=== PATIENT | male | born 1955 | race Caucasian/White ===

== ENCOUNTER 2023-11-08 14:25 | Inpatient (IN) | payer MEDICARE ==
--- NOTE | 2023-11-08 15:08 | ED ---
GI Bleed HPI - General Chief complaint: GI Bleed Stated complaint: abnormal labs Source: patient, RN notes reviewed, old records reviewed Mode of arrival: wheelchair Limitations: no limitations - History of Present Illness Initial comments: This is a 68-year-old male to the ER for evaluation today. Patient presents today for evaluation and regards to GI bleed sent in by primary care for evaluation of GI bleed underlying history of pancreatic cancer complaining of abdominal pain MD complaint: blood streaked emesis -: days(s) Radiation: none Severity scale (1-10): 3 Quality: painless Improves with: none Worsens with: none Context: history of GI bleed Associated Symptoms: weakness Treatments Prior to Arrival: none - Related Data Home Medications Medication Instructions Recorded Confirmed ALPRAZolam [Xanax] 0.5 mg PO TID PRN 11/08/23 11/08/23 Diphenox-Atrop 2.5-0.025 mg 1 - 2 tab PO Q6HR PRN 11/08/23 11/08/23 [Lomotil] Ondansetron Odt [Zofran ODT] 8 mg PO Q8H PRN 11/08/23 11/08/23 Tamsulosin [Flomax] 0.4 mg PO PC-SUPPER 11/08/23 11/08/23 Previous Rx's Medication Instructions Recorded HYDROcodone/APAP 5-325MG [[place] 1 each PO Q6HR PRN tab 11/11/23 5-325] Nicotine 14Mg/24Hr Patch [Habitrol] 1 patch TRANSDERM DAILY #0 patch 11/11/23 Pantoprazole [Protonix] 40 mg PO BID #60 tab 11/11/23 carvediloL [Coreg] 3.125 mg PO AC-BID #60 tablet 11/11/23 Allergies Allergy/AdvReac Type Severity Reaction Status Date / Time Latex, Natural Rubber Allergy Unknown Verified 11/08/23 14:52 Review of Systems ROS Statement: Those systems with pertinent positive or pertinent negative responses have been documented in the HPI. ROS Other: All systems not noted in ROS Statement are negative. 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 Absent: scleral icterus, conjunctival injection, periorbital swelling ENT exam: Present: normal exam, mucous membranes moist Neck exam: Present: normal inspection. Absent: tenderness, meningismus, lymphadenopathy Respiratory exam: Present: normal lung sounds bilaterally. Absent: respiratory distress, wheezes, rales, rhonchi, stridor Cardiovascular Exam: Present: regular rate, normal rhythm, normal heart sounds. Absent: systolic murmur, diastolic murmur, rubs, gallop, clicks GI/Abdominal exam: Present: soft, normal bowel sounds. Absent: distended, tenderness, guarding, rebound, rigid Extremities exam: Present: normal inspection, full ROM, normal capillary refill. Absent: tenderness, pedal edema, joint swelling, calf tenderness Back exam: Present: normal inspection Neurological exam: Present: alert, oriented X3, CN II-XII intact Psychiatric exam: Present: normal affect, normal mood Skin exam: Present: warm, dry, intact, normal color. Absent: rash Course Vital Signs 11/08/23 11/08/23 11/08/23 14:50 18:39 19:33 Temperature 98.1 F 98.1 F Pulse Rate 86 89 92 Respiratory 16 18 18 Rate Blood Pressure 95/66 97/61 92/54 O2 Sat by Pulse 98 98 95 Oximetry 11/08/23 20:20 Temperature 98.3 F Pulse Rate 84 Respiratory 14 Rate Blood Pressure 92/64 O2 Sat by Pulse 97 Oximetry - Reevaluation(s) Reevaluation #1: 11/08/23 15:36 Medical records reviewed Reevaluation #2: 11/08/23 16:06 Patient has no significant amount of GI bleed here in the ER Reevaluation #3: Patient informed of results and questions answered Reevaluation #4: Was pt. sent in by a medical professional or institution (, PA, OIL CHANGER, urgent care, hospital, or fci...) When possible be specific @ -no Did you speak to anyone other than the patient for history (EMS, parent, family, police, friend...)? What history was obtained from this source @ -no Did you review nursing and triage notes (agree or disagree)? Why? @ -agree Are old charts reviewed (outside hosp., previous admission, EMS record, old EKG, old radiological studies, urgent care reports/EKG's, fci records)? R eport findings @ -yes Differential Diagnosis (chest pain, altered mental status, abdominal pain women, abdominal pain men, vaginal bleeding, weakness, fever, dyspnea, syncope, headache, dizziness, GI bleed, back pain, seizure, CVA, palpatations, mental health, musculoskeletal)? @ -prior EKG interpreted by me (3pts min.). @ -yes X-rays interpreted by me (1pt min.). @ -no CT interpreted by me (1pt min.). @ -no U/S interpreted by me (1pt. min.). @ -no What testing was considered but not performed or refused? (CT, X-rays, U/S, labs)? Why? @ -none What meds were considered but not given or refused? Why? @ -none Did you discuss the management of the patient with other professionals (prof essionals i.e. , PA, OIL CHANGER, lab, RT, psych nurse, social welfare research worker, crate tier, teacher, freedom of information officer, rn case manager hospice)? Give summary @ -no Was smoking cessation discussed for >3mins.? @ -no Was critical care preformed (if so, how long)? @ -no Were there social determinants of health that impacted care today? How? (Homelessness, low income, unemployed, alcoholism, drug addiction, transportation, low edu. Level, literacy, decrease access to med. care, shelter, rehab)? @ -none Was there de-escalation of care discussed even if they declined (Discuss DNR or withdrawal of care, Hospice)? DNR status @ -no What co-morbidities impacted this encounter? (DM, HTN, Smoking, COPD, CAD, Cancer, CVA, ARF, Chemo, Hep., AIDS, mental health diagnosis, sleep apnea, morbid obesity)? @ -none Was patient admitted / discharged? Hospital course, mention meds given and route, prescriptions, significant lab abnormalities, going to OR and other pertinent info. @ - 68 Female to ER for evaluation sent by primary care for GI bleed underlying pancreatic cancer history, need for GI evaluation Admitted GI bleed Undiagnosed new problem with uncertain prognosis? @ -no Drug Therapy requiring intensive monitoring for toxicity (Heparin, Nitro, Insulin, Cardizem)? @ -no Were any procedures done? @ -no Diagnosis/symptom? @ - Acute, or Chronic, or Acute on Chronic? @ -Acute Uncomplicated (without systemic symptoms) or Complicated (systemic symptoms)? @ -Complicated Side effects of treatment? @ -no Exacerbation, Progression, or Severe Exacerbation? @ -exacerbation Poses a threat to life or bodily function? How? (Chest pain, USA, SC, pneumonia, PE, COPD, DKA, ARF, appy, cholecystitis, CVA, Diverticulitis, Homicidal, Suicidal, threat to staff... and all critical care pts) @ -yes with admitted Reevaluation #5: Differential GI Bleed: Esophageal varices, aortoenteric fistula, Kath-Shields, gastritis, peptic ulcer disease, diverticulosis, inflammatory bowel disease, hemorrhoids, fissure, colitis, malignancy, Meckels diverticulum, this is not meant to be an all- inclusive list. - Consultations Consultation #1: spoke w Dr. Deras regarding this patient prehospital as well as regarding admission he agrees Medical Decision Making - Medical Decision Making 68 Female to ER for evaluation sent by primary care for GI bleed underlying pancreatic cancer history, need for GI evaluation - Lab Data Result diagrams: 11/11/23 06:24 11/11/23 06:24 Lab Results 11/08/23 11/08/23 11/08/23 Range/Units 15:55 16:00 16:18 WBC 9.0 (3.8-10.6) k/uL RBC 2.55 L (4.30-5.90) m/uL Hgb 8.1 L (13.0-17.5) gm/dL Hct 24.6 L (39.0-53.0) % MCV 96.5 (80.0-100.0) fL MCH 31.7 (25.0-35.0) pg MCHC 32.8 (31.0-37.0) g/dL RDW 14.8 (11.5-15.5) % Plt Count 139 L (150-450) k/uL MPV 9.0 Neutrophils % 85 % Lymphocytes % 7 % Monocytes % 6 % Eosinophils % 0 % Basophils % 0 % Neutrophils # 7.7 (1.3-7.7) k/uL Lymphocytes # 0.7 L (1.0-4.8) k/uL Monocytes # 0.5 (0-1.0) k/uL Eosinophils # 0.0 (0-0.7) k/uL Basophils # 0.0 (0-0.2) k/uL Manual Slide Review Macrocytosis PT (10.0-12.5) sec INR (<1.2) APTT (22.0-30.0) sec Sodium (137-145) mmol/L Potassium (3.5-5.1) mmol/L Chloride (98-107) mmol/L Carbon Dioxide (22-30) mmol/L Anion Gap mmol/L BUN (9-20) mg/dL Creatinine (0.66-1.25) mg/dL Est GFR (CKD-EPI)AfAm (>60 ml/min/1.73 sqM) Est GFR (CKD-EPI)NonAf (>60 ml/min/1.73 sqM) Glucose (74-99) mg/dL Plasma Lactic Acid Walt (0.7-2.0) mmol/L Calcium (8.4-10.2) mg/dL Phosphorus (2.5-4.5) mg/dL Magnesium (1.6-2.3) mg/dL Iron (65-175) UG/DL TIBC (228-460) UG/DL % Saturation (15.00-50.00) Transferrin (204.0-354.0) mg/dL Ferritin (22.0-322.0) ng/mL Total Bilirubin (0.2-1.3) mg/dL AST (17-59) U/L ALT (4-49) U/L Alkaline Phosphatase (38-126) U/L Ammonia (<30) umol/L Troponin I (0.000-0.034) ng/mL Total Protein (6.3-8.2) g/dL Albumin (3.5-5.0) g/dL Lipase (23-300) U/L Vitamin B12 (200.0-944.0) pg/mL Folate (4.40-31.00) ng/mL TSH (0.465-4.680) mIU/L Blood Type A Positive Blood Type Confirm A Positive Blood Type Recheck No Previous Record Bld Type Recheck Status CABO Indicated Antibody Screen NEGATIVE Crossmatch See Detail Spec Expiration Date 11/11/2023 - 229911/08/23 11/08/23 11/08/23 Range/Units 16:18 16:18 16:18 WBC (3.8-10.6) k/uL RBC (4.30-5.90) m/uL Hgb (13.0-17.5) gm/dL Hct (39.0-53.0) % MCV (80.0-100.0) fL MCH (25.0-35.0) pg MCHC (31.0-37.0) g/dL RDW (11.5-15.5) % Plt Count (150-450) k/uL MPV Neutrophils % % Lymphocytes % % Monocytes % % Eosinophils % % Basophils % % Neutrophils # (1.3-7.7) k/uL Lymphocytes # (1.0-4.8) k/uL Monocytes # (0-1.0) k/uL Eosinophils # (0-0.7) k/uL Basophils # (0-0.2) k/uL Manual Slide Review Macrocytosis PT 11.1 (10.0-12.5) sec INR 1.0 (<1.2) APTT 31.7 H (22.0-30.0) sec Sodium 136 L (137-145) mmol/L Potassium 4.1 (3.5-5.1) mmol/L Chloride 102 (98-107) mmol/L Carbon Dioxide 29 (22-30) mmol/L Anion Gap 5 mmol/L BUN 26 H (9-20) mg/dL Creatinine 0.41 L (0.66-1.25) mg/dL Est GFR (CKD-EPI)AfAm >90 (>60 ml/min/1.73 sqM) Est GFR (CKD-EPI)NonAf >90 (>60 ml/min/1.73 sqM) Glucose 96 (74-99) mg/dL Plasma Lactic Acid Walt 1.2 (0.7-2.0) mmol/L Calcium 8.6 (8.4-10.2) mg/dL Phosphorus (2.5-4.5) mg/dL Magnesium 1.8 (1.6-2.3) mg/dL Iron (65-175) UG/DL TIBC (228-460) UG/DL % Saturation (15.00-50.00) Transferrin (204.0-354.0) mg/dL Ferritin (22.0-322.0) ng/mL Total Bilirubin 0.7 (0.2-1.3) mg/dL AST 28 (17-59) U/L ALT 23 (4-49) U/L Alkaline Phosphatase 155 H (38-126) U/L Ammonia <9 (<30) umol/L Troponin I (0.000-0.034) ng/mL Total Protein 5.6 L (6.3-8.2) g/dL Albumin 3.2 L (3.5-5.0) g/dL Lipase 26 (23-300) U/L Vitamin B12 (200.0-944.0) pg/mL Folate (4.40-31.00) ng/mL TSH (0.465-4.680) mIU/L Blood Type Blood Type Confirm Blood Type Recheck Bld Type Recheck Status Antibody Screen Crossmatch Spec Expiration Date 11/08/23 11/08/23 11/08/23 Range/Units 16:18 16:18 21:41 WBC 5.8 (3.8-10.6) k/uL RBC 2.28 L (4.30-5.90) m/uL Hgb 7.0 L (13.0-17.5) gm/dL Hct 22.5 L (39.0-53.0) % MCV 99.0 (80.0-100.0) fL MCH 30.8 (25.0-35.0) pg MCHC 31.1 (31.0-37.0) g/dL RDW 14.8 (11.5-15.5) % Plt Count 95 L (150-450) k/uL MPV 9.2 Neutrophils % 79 % Lymphocytes % 12 % Monocytes % 6 % Eosinophils % 1 % Basophils % 1 % Neutrophils # 4.6 (1.3-7.7) k/uL Lymphocytes # 0.7 L (1.0-4.8) k/uL Monocytes # 0.4 (0-1.0) k/uL Eosinophils # 0.0 (0-0.7) k/uL Basophils # 0.0 (0-0.2) k/uL Manual Slide Review Performed Macrocytosis Slight PT (10.0-12.5) sec INR (<1.2) APTT (22.0-30.0) sec Sodium (137-145) mmol/L Potassium (3.5-5.1) mmol/L Chloride (98-107) mmol/L Carbon Dioxide (22-30) mmol/L Anion Gap mmol/L BUN (9-20) mg/dL Creatinine (0.66-1.25) mg/dL Est GFR (CKD-EPI)AfAm (>60 ml/min/1.73 sqM) Est GFR (CKD-EPI)NonAf (>60 ml/min/1.73 sqM) Glucose (74-99) mg/dL Plasma Lactic Acid Walt (0.7-2.0) mmol/L Calcium (8.4-10.2) mg/dL Phosphorus (2.5-4.5) mg/dL Magnesium (1.6-2.3) mg/dL Iron (65-175) UG/DL TIBC (228-460) UG/DL % Saturation (15.00-50.00) Transferrin (204.0-354.0) mg/dL Ferritin (22.0-322.0) ng/mL Total Bilirubin (0.2-1.3) mg/dL AST (17-59) U/L ALT (4-49) U/L Alkaline Phosphatase (38-126) U/L Ammonia (<30) umol/L Troponin I <0.012 (0.000-0.034) ng/mL Total Protein (6.3-8.2) g/dL Albumin (3.5-5.0) g/dL Lipase (23-300) U/L Vitamin B12 (200.0-944.0) pg/mL Folate (4.40-31.00) ng/mL TSH 1.600 (0.465-4.680) mIU/L Blood Type Blood Type Confirm Blood Type Recheck Bld Type Recheck Status Antibody Screen Crossmatch Spec Expiration Date 11/09/23 11/09/23 11/09/23 Range/Units 10:16 10:16 10:16 WBC 4.7 (3.8-10.6) k/uL RBC 2.21 L (4.30-5.90) m/uL Hgb 6.8 L* (13.0-17.5) gm/dL Hct 21.5 L (39.0-53.0) % MCV 97.6 (80.0-100.0) fL MCH 31.0 (25.0-35.0) pg MCHC 31.7 (31.0-37.0) g/dL RDW 15.0 (11.5-15.5) % Plt Count 96 L (150-450) k/uL MPV 9.2 Neutrophils % 82 % Lymphocytes % 9 % Monocytes % 6 % Eosinophils % 2 % Basophils % 0 % Neutrophils # 3.8 (1.3-7.7) k/uL Lymphocytes # 0.4 L (1.0-4.8) k/uL Monocytes # 0.3 (0-1.0) k/uL Eosinophils # 0.1 (0-0.7) k/uL Basophils # 0.0 (0-0.2) k/uL Manual Slide Review Macrocytosis PT (10.0-12.5) sec INR (<1.2) APTT (22.0-30.0) sec Sodium 136 L (137-145) mmol/L Potassium 3.7 (3.5-5.1) mmol/L Chloride 108 H (98-107) mmol/L Carbon Dioxide 27 (22-30) mmol/L Anion Gap 1 mmol/L BUN 18 (9-20) mg/dL Creatinine 0.38 L (0.66-1.25) mg/dL Est GFR (CKD-EPI)AfAm >90 (>60 ml/min/1.73 sqM) Est GFR (CKD-EPI)NonAf >90 (>60 ml/min/1.73 sqM) Glucose 77 (74-99) mg/dL Plasma Lactic Acid Walt (0.7-2.0) mmol/L Calcium 8.0 L (8.4-10.2) mg/dL Phosphorus 3.4 (2.5-4.5) mg/dL Magnesium 1.8 (1.6-2.3) mg/dL Iron 39 L (65-175) UG/DL TIBC 235 (228-460) UG/DL % Saturation 16.60 (15.00-50.00) Transferrin 168.0 L (204.0-354.0) mg/dL Ferritin 168.0 (22.0-322.0) ng/mL Total Bilirubin 0.6 (0.2-1.3) mg/dL AST 24 (17-59) U/L ALT 19 (4-49) U/L Alkaline Phosphatase 136 H (38-126) U/L Ammonia (<30) umol/L Troponin I (0.000-0.034) ng/mL Total Protein 4.9 L (6.3-8.2) g/dL Albumin 2.6 L (3.5-5.0) g/dL Lipase (23-300) U/L Vitamin B12 359.0 (200.0-944.0) pg/mL Folate 11.80 (4.40-31.00) ng/mL TSH (0.465-4.680) mIU/L Blood Type Blood Type Confirm Blood Type Recheck Bld Type Recheck Status Antibody Screen Crossmatch Spec Expiration Date 11/09/23 11/10/23 11/10/23 Range/Units 20:05 08:46 08:46 WBC 5.5 5.2 (3.8-10.6) k/uL RBC 2.40 L 2.72 L (4.30-5.90) m/uL Hgb 7.6 L 8.5 L (13.0-17.5) gm/dL Hct 23.7 L 26.8 L (39.0-53.0) % MCV 98.9 98.7 (80.0-100.0) fL MCH 31.8 31.4 (25.0-35.0) pg MCHC 32.2 31.8 (31.0-37.0) g/dL RDW 14.6 15.2 (11.5-15.5) % Plt Count 104 L 110 L (150-450) k/uL MPV 8.6 8.9 Neutrophils % % Lymphocytes % % Monocytes % % Eosinophils % % Basophils % % Neutrophils # (1.3-7.7) k/uL Lymphocytes # (1.0-4.8) k/uL Monocytes # (0-1.0) k/uL Eosinophils # (0-0.7) k/uL Basophils # (0-0.2) k/uL Manual Slide Review Macrocytosis Slight Slight PT (10.0-12.5) sec INR (<1.2) APTT (22.0-30.0) sec Sodium 139 (137-145) mmol/L Potassium 3.3 L (3.5-5.1) mmol/L Chloride 111 H (98-107) mmol/L Carbon Dioxide 23 (22-30) mmol/L Anion Gap 5 mmol/L BUN 12 (9-20) mg/dL Creatinine 0.42 L (0.66-1.25) mg/dL Est GFR (CKD-EPI)AfAm >90 (>60 ml/min/1.73 sqM) Est GFR (CKD-EPI)NonAf >90 (>60 ml/min/1.73 sqM) Glucose 89 (74-99) mg/dL Plasma Lactic Acid Walt (0.7-2.0) mmol/L Calcium 8.3 L (8.4-10.2) mg/dL Phosphorus (2.5-4.5) mg/dL Magnesium (1.6-2.3) mg/dL Iron (65-175) UG/DL TIBC (228-460) UG/DL % Saturation (15.00-50.00) Transferrin (204.0-354.0) mg/dL Ferritin (22.0-322.0) ng/mL Total Bilirubin 0.8 (0.2-1.3) mg/dL AST 27 (17-59) U/L ALT 20 (4-49) U/L Alkaline Phosphatase 164 H (38-126) U/L Ammonia (<30) umol/L Troponin I (0.000-0.034) ng/mL Total Protein 5.2 L (6.3-8.2) g/dL Albumin 2.9 L (3.5-5.0) g/dL Lipase (23-300) U/L Vitamin B12 (200.0-944.0) pg/mL Folate (4.40-31.00) ng/mL TSH (0.465-4.680) mIU/L Blood Type Blood Type Confirm Blood Type Recheck Bld Type Recheck Status Antibody Screen Crossmatch Spec Expiration Date Disposition Clinical Impression: Lower gastrointestinal hemorrhage Disposition: ADMITTED IP TO THIS HOSP Condition: Serious Is patient prescribed a controlled substance at d/c from ED?: No Time of Disposition: 16:00
[2023-11-08] MEDS ORDERED: HYDROmorphone 1 MG/ML 1 ML SYRINGE IVP PRN (16:00)
[2023-11-08] MEDS ORDERED: NALOXONE 0.4 MG/ML 1 ML VIAL IV PRN (16:00)
[2023-11-08] MEDS: HYDROmorphone 1 MG/ML 1 ML SYRINGE IVP STA (16:33)
[2023-11-08] MEDS: ONDANSETRON 4 MG/2 ML VIAL IVP STA (16:37)
[2023-11-08] MEDS: PANTOPRAZOLE 40 MG/10 ML VIAL IVP STA (16:37)
[2023-11-08] MEDS: NICOTINE 21MG/24HR PATCH TRANSDERM STA (16:43)
[2023-11-08] MEDS: SODIUM CHLORIDE 0.9% 1,000 ML IV STA ×2 (16:44→18:19)
[2023-11-08 16:47] LABS: Partial Thromboplastin Time 31.7 sec (22.0-30.0); Prothrombin Time 11.1 sec (10.0-12.5)
[2023-11-08 16:55] LABS: Basophils % (A) 0 %; Eosinophils % (A) 0 %; HCT 24.6 % (39.0-53.0); HGB 8.1 gm/dL (13.0-17.5); Lymphocytes # (A) 0.7 k/uL (1.0-4.8); Lymphocytes % (A) 7 %; MCH 31.7 pg (25.0-35.0); MCHC 32.8 g/dL (31.0-37.0); MCV 96.5 fL (80.0-100.0); Monocytes # (A) 0.5 k/uL (0-1.0); Monocytes % (A) 6 %; Neutrophils # (A) 7.7 k/uL (1.3-7.7); Neutrophils % (A) 85 %; Platelet Count 139 k/uL (150-450); RBC 2.55 m/uL (4.30-5.90); RDW 14.8 % (11.5-15.5)
[2023-11-08 17:00] LABS: ALT 23 U/L (4-49); AST 28 U/L (17-59); African American GFR (CKD) >90 (>60 ml/min/1.73 sqM); Albumin 3.2 g/dL (3.5-5.0); Alkaline Phosphatase 155 U/L (38-126); Anion Gap 5 mmol/L; Blood Urea Nitrogen 26 mg/dL (9-20); Calcium 8.6 mg/dL (8.4-10.2); Carbon Dioxide 29 mmol/L (22-30); Chloride 102 mmol/L (98-107); Glucose 96 mg/dL (74-99); Lipase 26 U/L (23-300); Magnesium 1.8 mg/dL (1.6-2.3); Non-African American GFR(CKD) >90 (>60 ml/min/1.73 sqM); Potassium 4.1 mmol/L (3.5-5.1); Sodium 136 mmol/L (137-145); Total Bilirubin 0.7 mg/dL (0.2-1.3); Total Protein 5.6 g/dL (6.3-8.2)
[2023-11-08 17:01] LABS: Lactic Acid, Venous 1.2 mmol/L (0.7-2.0)
[2023-11-08] MEDS: TAMSULOSIN 0.4 MG CAP.ER.24H PO SCH (19:01)
[2023-11-08] MEDS: PANTOPRAZOLE 40 MG/10 ML VIAL IV SCH (21:37)
[2023-11-08] MEDS: ALPRAZolam 0.5 MG TAB PO PRN (21:37)
[2023-11-08 21:59] LABS: Basophils % (A) 1 %; Eosinophils % (A) 1 %; HCT 22.5 % (39.0-53.0); Lymphocytes # (A) 0.7 k/uL (1.0-4.8); Lymphocytes % (A) 12 %; MCH 30.8 pg (25.0-35.0); MCHC 31.1 g/dL (31.0-37.0); Macrocytosis Slight; Mean Platelet Volume 9.2; Monocytes # (A) 0.4 k/uL (0-1.0); Monocytes % (A) 6 %; Neutrophils # (A) 4.6 k/uL (1.3-7.7); Neutrophils % (A) 79 %; RBC 2.28 m/uL (4.30-5.90); RDW 14.8 % (11.5-15.5); WBC 5.8 k/uL (3.8-10.6)
[2023-11-08 22:44] LABS: Platelet Count 95 k/uL (150-450)
--- NOTE | 2023-11-08 23:47 | P.HPIM ---
History of Present Illness H&P Date: 11/08/23 HISTORY OF PRESENT ILLNESS: 68-year-old office patient with active medical history of pancreatic cancer, history of polycythemia vera, kidney stone with mild hydronephrosis, hy pertension, hyperlipidemia, atrial fibrillation not on any anticoagulation who has been treated promptly for pancreatic cancer had radiation and chemotherapy last cycle was few weeks ago he was seen his oncologist at [facility] and seen cryptologic linguist at [facility] as well. He was recently in the office for recurrent abdominal discomfort with mild hematuria and BPH symptoms CAT scan of the abdomen done recently showed kidney stone with mild hydronephrosis and sign of upper urinary infection was started on Cipro and Flomax and has done well. He called the office today with a concern of tarry stool, severe fatigue and tiredness, increased abdominal pain mostly in the epigastric area started Tuesday of this week become slightly bit worse since and has been having tarry black stool since with slightly frequent bowel movement. Was seen and evaluated in the office his hemoglobin from the time before was 12 g stat CBC was done in the office came back at 9.0. Patient was referred to the emergency department for gastrointestinal bleed he ended up with hemoglobin of 8.1 with a short pe riod of time from the timing of the office to coming to the hospital. Patient was admitted for gastrointestinal bleed most likely upper GI his pulse was slightly bit irregular, has A-fib and has been having history of A-fib for a while did not require any anticoagulation was seen cardiology previously with his current history of gastrointestinal cancer and the higher evidence for anemia and complication he is not on any anticoagulation. REVIEW OF SYSTEMS: CONSTITUTIONAL: Well-developed no acute respiratory distress. Quite bit pale. EYES: No icterus sclerae, no conjunctivitis. EARS, NOSE, MOUTH, THROAT, and FACE: No sore throat, lymphadenopathy, carotid bruits or deformity. RESPIRATORY: No SOB cough or wheezes. CARDIOVASCULAR: No CP, positive palpitation and PND, Orthopnea, without angina. GASTROINTESTINAL: Positive abdominal pain with nausea positive diarrhea with black stool and recurrent GI bleed without any bright blood per rectum. History of pancreatic cancer. GENITOURINARY: Negative for Hematuria or UTI, no kidney stones. Mild BPH sympt oms. INTEGUMENT/BREAST: Negative for any muscular injury with mild osteoarthritis.. HEMATOLOGIC/LYMPHATIC: Negative for bleed or purpura. MUSCULOSKELTAL: Negative for Myalgia or arthralgia. NEURLOGICAL: No LOC, Sz or syncope, blurred vision dizziness or abnormality.. BEHAVIORAL/PSYCH: Negative. ENDOCRINE: Negative. PHYSICAL EXAMINATION: General Appearance: Alert, cooperative, no distress, appears stated age. Neck HEENT: Supple, no lymphadenopathy, no thyroid enlargement, no carotid bruits. Lungs: Clear to auscultation without crackles or wheezes no rhonchi, no defor mity. Chest Wall: Chest wall normal expansion with deep inspiration no tenderness and no deformity was found on exam, no costochondral pain or discomfort. Heart: Irregular rate and rhythm, S1, S2 normal, positive systolic murmur at the apex. Back: Symmetric, no curvature, ROM normal, no CVA tenderness. Mild scoliosis and discomfort. Abdomen: Soft, bowel sounds active all four quadrants, slight discomfort in the epigastric area and mid abdominal area without rebound or rigidity. Extremities: Extremities normal, atraumatic, no cyanosis or edema. Old scar tissue on the left calvarium. Pulses: 2+ and symmetric. Skin: Skin color, texture, tugor normal, no rashes or lesions. Neurologic: Alert oriented x3 cranial nerves II through XII intact, no motor deficit, no abnormal balance or gait. ASSESSMENT AND PLAN: _Acute gastrointestinal bleed: Most likely upper in origin most likely gastritis or ulcer with his history of pancreatic cancer with the current treatment very high possibility. Continue pantoprazole IV 40 mg twice a day, consult GI, CBC every 6-8 hours and be prepared for blood transfusion in the next few hours. _Acute blood loss anemia: Most likely from gastrointestinal bleed specially with his tarry stool will be scheduled for EGD in the next 24 hours in the meanwhile continue proton pump inhibitor IV transfusion if hemoglobin drop below 7. _History of pancreatic cancer: Has been treated with chemotherapy currently was the plan to go for intervention with possible [facility] at [facility] procedure currently can delay. _History of polycythemia vera: Has been seen by an oncologist at [facility] on more regular basis was doing hydroxyurea previously. _Recent history of kidney stone with mild hydronephrosis found via CAT scan patient was treated remain on Flomax. _Abdominal aortic aneurysm with size of 3.8 cm small and to be watch not in any active treatment. _Hypertension: Has been on lisinopril hydrochlorothiazide 10/12.5 mg a day hold medication if systolic blood pressure below 110. _Hyperlipidemia: Has been on simvastatin 20 mg a day. _A-fib with well-controlled pulse rate running in the 70s to 90s was on atenolol previously he is not on any anticoagulation. _BPH: Continue Flomax watch for any urinary retention. 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 _GI prophylaxis: Continue pantoprazole IV. _DVT prophylaxis: Continue knee-high ANTHONY hose and early mobilization. CODE STATUS: Full code. Admit patient to the inpatient service for more than 2 night stay. 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 Past Anesthesia/Blood Transfusion Reactions: No Reported Reaction Past Psychological History: No Psychological Hx Reported Smoking Status: Current every day smoker Past Alcohol Use History: Occasional Past Drug Use History: None Reported Medications and Allergies Home Medications Medication Instructions Recorded Confirmed Type ALPRAZolam [Xanax] 0.5 mg PO TID PRN 11/08/23 11/08/23 History Diphenox-Atrop 2.5-0.025 mg 1 - 2 tab PO Q6HR PRN 11/08/23 11/08/23 History [Lomotil] Ondansetron Odt [Zofran Odt] 8 mg PO Q8H PRN 11/08/23 11/08/23 History Tamsulosin [Flomax] 0.4 mg PO PC-SUPPER 11/08/23 11/08/23 History Allergies Allergy/AdvReac Type Severity Reaction Status Date / Time Latex, Natural Rubber Allergy Unknown Verified 11/08/23 14:52 Physical Exam Vitals: Vital Signs Temp Pulse Resp BP Pulse Ox 11/08/23 14:50 98.1 F 86 16 95/66 98 Intake and Output 11/08/23 11/08/23 11/08/23 06:59 14:59 22:59 Other: Weight 60.328 kg Results CBC & Chem 7: 11/08/23 21:41 11/08/23 16:18 Labs: Abnormal Lab Results - Last 24 Hours (Table) 11/08/23 11/08/23 11/08/23 Range/Units 16:18 16:18 16:18 RBC 2.55 L (4.30-5.90) m/uL Hgb 8.1 L (13.0-17.5) gm/dL Hct 24.6 L (39.0-53.0) % Plt Count 139 L (150-450) k/uL Lymphocytes # 0.7 L (1.0-4.8) k/uL APTT 31.7 H (22.0-30.0) sec Sodium 136 L (137-145) mmol/L BUN 26 H (9-20) mg/dL Creatinine 0.41 L (0.66-1.25) mg/dL Alkaline Phosphatase 155 H (38-126) U/L Total Protein 5.6 L (6.3-8.2) g/dL Albumin 3.2 L (3.5-5.0) g/dL
[2023-11-09] MEDS: NICOTINE 14MG/24HR PATCH TRANSDERM SCH (08:12)
[2023-11-09] MEDS: SODIUM CHLORIDE 0.9% 1,000 ML IV SCH (08:13)
[2023-11-09 10:42] LABS: Basophils % (A) 0 %; Eosinophils # (A) 0.1 k/uL (0-0.7); Eosinophils % (A) 2 %; HCT 21.5 % (39.0-53.0); Lymphocytes # (A) 0.4 k/uL (1.0-4.8); Lymphocytes % (A) 9 %; MCHC 31.7 g/dL (31.0-37.0); MCV 97.6 fL (80.0-100.0); Mean Platelet Volume 9.2; Monocytes # (A) 0.3 k/uL (0-1.0); Monocytes % (A) 6 %; Neutrophils # (A) 3.8 k/uL (1.3-7.7); Neutrophils % (A) 82 %; RBC 2.21 m/uL (4.30-5.90); WBC 4.7 k/uL (3.8-10.6)
[2023-11-09 10:56] LABS: ALT 19 U/L (4-49); AST 24 U/L (17-59); African American GFR (CKD) >90 (>60 ml/min/1.73 sqM); Albumin 2.6 g/dL (3.5-5.0); Alkaline Phosphatase 136 U/L (38-126); Anion Gap 1 mmol/L; Blood Urea Nitrogen 18 mg/dL (9-20); Carbon Dioxide 27 mmol/L (22-30); Chloride 108 mmol/L (98-107); Glucose 77 mg/dL (74-99); Magnesium 1.8 mg/dL (1.6-2.3); Non-African American GFR(CKD) >90 (>60 ml/min/1.73 sqM); Phosphorus 3.4 mg/dL (2.5-4.5); Potassium 3.7 mmol/L (3.5-5.1); Sodium 136 mmol/L (137-145); Total Bilirubin 0.6 mg/dL (0.2-1.3); Total Protein 4.9 g/dL (6.3-8.2)
[2023-11-09 11:07] LABS: Platelet Count 96 k/uL (150-450)
[2023-11-09 11:09] LABS: HGB 6.8 gm/dL (13.0-17.5)
--- NOTE | 2023-11-09 11:19 | P.CONS ---
History of Present Illness - Reason for Consult Consult date: 11/09/23 GI bleed Requesting physician: Kenneth Hart - Chief Complaint Black stool, weakness - History of Present Illness This is a pleasant 68-year-old male with a past medical history including polycythemia vera, hyperlipidemia, hypertension, possible atrial fibrillation not on anticoagulation, kidney stone with hydronephrosis and pancreatic cancer with recent chemotherapy and radiation therapy. Last radiation treatment in July this year. Patient states he started noticing black stools Tuesday morning which have been loose he was having multiple prior to coming into the hospital but has only had 1 yesterday morning. States it was still black, no abdominal pain but states that he does have some epigastric discomfort and has been having more recent complaints of heartburn/acid reflux. He denies any difficulty swallowing. He denies any NSAID use states he only uses Tylenol. Denies any previous history of GI bleed. He had a screening colonoscopy in September [address] Chisholm with findings of diverticulosis and multiple polyps status post polypectomy. He states that as part of his workup for his pancreatic cancer which she follows with [facility] in [place] he had a colonoscopy last year which she states was normal. No prior upper endoscopy. No history of peptic ulcer disease. Hemoglobin 7.0 yesterday platelets 95,000 with elevated BUN 26. Review of Systems REVIEW OF SYSTEMS: CARDIOPULMONARY: No chest pain or shortness of breath. Gastrointestinal: No abdominal pain. Acid reflux/GERD. No nausea or vomiting. No hematemesis, coffee-ground emesis. No rectal bleeding, reports black stool since Tuesday. GENITOURINARY: No dysuria or hematuria. MUSCULOSKELETAL: Reports normal range of motion., Joint pain. SKIN: No rashes. No jaundice. ENDOCRINE: No chills, fevers. No excessive weight gain or loss. No polydipsia or polyuria. PSYCHIATRIC: Unremarkable. NEUROLOGY: No change in mental status. Denies dizziness, headache. ENT: Vision unremarkable. CONSTITUTIONAL: No fever, chills, night sweats. Past Medical History Past Medical History: Hyperlipidemia, Hypertension, Osteoarthritis (OA) Additional Past Medical History / Comment(s): Farming accident to left medial calf/erickson History of Any Multi-Drug Resistant Organisms: None Reported Past Surgical History: Orthopedic Surgery Additional Past Surgical History / Comment(s): multiple surgeries to left calf related to farming accident Past Anesthesia/Blood Transfusion Reactions: No Reported Reaction Past Psychological History: No Psychological Hx Reported Smoking Status: Current every day smoker Past Alcohol Use History: Occasional Past Drug Use History: None Reported Medications and Allergies Home Medications Medication Instructions Recorded Confirmed Type ALPRAZolam [Xanax] 0.5 mg PO TID PRN 11/08/23 11/08/23 History Diphenox-Atrop 2.5-0.025 mg 1 - 2 tab PO Q6HR PRN 11/08/23 11/08/23 History [Lomotil] Ondansetron Odt [Zofran Odt] 8 mg PO Q8H PRN 11/08/23 11/08/23 History Tamsulosin [Flomax] 0.4 mg PO PC-SUPPER 11/08/23 11/08/23 History Allergies Allergy/AdvReac Type Severity Reaction Status Date / Time Latex, Natural Rubber Allergy Unknown Verified 11/08/23 14:52 Physical Exam Vitals: Vital Signs Temp Pulse Pulse Resp BP BP Pulse Ox 11/09/23 08:10 97.7 F 80 18 97/65 95 11/09/23 04:00 97.9 F 79 16 96/57 98 11/09/23 00:00 97.9 F 91 16 90/56 95 11/08/23 21:18 98 F 98 18 108/71 100 11/08/23 20:20 98.3 F 84 14 92/64 97 11/08/23 19:33 98.1 F 92 18 92/54 95 11/08/23 18:39 89 18 97/61 98 11/08/23 14:50 98.1 F 86 16 95/66 98 Intake and Output 11/08/23 11/09/23 11/09/23 22:59 06:59 14:59 Intake Total 800 Output Total 250 Balance -250 800 Intake: Intake, IV Titration 800 Amount Sodium Chloride 0.9% 1, 800 000 ml @ 100 mls/hr IV . Q10H STA Rx#:[id number] Output: Urine 250 Other: Voiding Method Toilet Toilet # Voids 1 1 Weight 60.328 kg 61.5 kg General appearance: The patient is alert, oriented, appears in no acute distress. HET: Head is normocephalic and atraumatic. Conjunctiva pink. Sclera anicteric. Neck: Supple without lymphadenopathy. Trachea midline. Heart: Regular. Lungs: Equal expansion, normal respiratory effort. Abdomen: Soft, nontender, nondistended. Skin: No rashes. No jaundice. Extremities: Normal skin color and turgor. No pedal edema. Neurological: No focal deficits. Alert and oriented x3. Results CBC & Chem 7: 11/08/23 21:41 11/09/23 10:16 Labs: Abnormal Lab Results - Last 24 Hours (Table) 11/08/23 11/08/23 11/08/23 Range/Units 16:18 16:18 16:18 RBC 2.55 L (4.30-5.90) m/uL Hgb 8.1 L (13.0-17.5) gm/dL Hct 24.6 L (39.0-53.0) % Plt Count 139 L (150-450) k/uL Lymphocytes # 0.7 L (1.0-4.8) k/uL APTT 31.7 H (22.0-30.0) sec Sodium 136 L (137-145) mmol/L Chloride (98-107) mmol/L BUN 26 H (9-20) mg/dL Creatinine 0.41 L (0.66-1.25) mg/dL Calcium (8.4-10.2) mg/dL Alkaline Phosphatase 155 H (38-126) U/L Total Protein 5.6 L (6.3-8.2) g/dL Albumin 3.2 L (3.5-5.0) g/dL 11/08/23 11/09/23 Range/Units 21:41 10:16 RBC 2.28 L (4.30-5.90) m/uL Hgb 7.0 L (13.0-17.5) gm/dL Hct 22.5 L (39.0-53.0) % Plt Count 95 L (150-450) k/uL Lymphocytes # 0.7 L (1.0-4.8) k/uL APTT (22.0-30.0) sec Sodium 136 L (137-145) mmol/L Chloride 108 H (98-107) mmol/L BUN (9-20) mg/dL Creatinine 0.38 L (0.66-1.25) mg/dL Calcium 8.0 L (8.4-10.2) mg/dL Alkaline Phosphatase 136 H (38-126) U/L Total Protein 4.9 L (6.3-8.2) g/dL Albumin 2.6 L (3.5-5.0) g/dL Assessment and Plan (1) Anemia Narrative/Plan: 68-year-old male presenting with weakness and black stools since Tuesday. No previous history of GI bleed however does have pancreatic cancer his completed chemotherapy and recently completed radiation therapy last treatment and July of this year. Reported history of atrial fibrillation not on any anticoagulation presented with anemia. Unclear etiology patient has been co mplaining of epigastric discomfort and GERD. No NSAID use. Possible etiologies include peptic ulcer disease, AVM, gastritis, esophagitis or other possible etiologies. Recommend proceeding with upper endoscopy as patient has had a drop in hemoglobin to 6.8 today, elevated BUN which can be seen with upper GI bleed. Current Visit: Yes Status: Acute Code(s): D64.9 - ANEMIA, UNSPECIFIED SNOMED Code(s): 353880442 (2) Melena Current Visit: Yes Status: Acute Code(s): K92.1 - MELENA SNOMED Code(s): 7547027 (3) Pancreatic cancer Current Visit: Yes Status: Acute Code(s): C25.9 - MALIGNANT NEOPLASM OF PANCREAS, UNSPECIFIED SNOMED Code(s): 980341511 (4) Polycythemia vera Current Visit: Yes Status: Acute Code(s): D45 - POLYCYTHEMIA VERA SNOMED Code(s): 340923288 (5) Nicotine addiction Current Visit: No Status: Acute Code(s): F17.200 - NICOTINE DEPENDENCE, UNSPECIFIED, UNCOMPLICATED SNOMED Code(s): 31090055 Plan: 1. Continue symptomatic and supportive care 2. Keep n.p.o. 3. Daily CBC, transfuse for hemoglobin less than 7 4. Transfuse 1 unit of blood 5. Avoid NSAIDs 6. Protonix 40 mg twice daily 7. Anemia profile ordered 8. Will plan for upper endoscopy today. Procedure discussed with patient and at the bedside including risks and benefits. Patient agreeable to proceed. Thank you for this consultation, we will continue to follow. Dr. Sarabjit Al I agree with the dictator's note, documented as a scribe by Melina Weathers
--- NOTE | 2023-11-09 12:11 | P.CRDCN ---
History of Present Illness History of present illness: HISTORY OF PRESENT ILLNESS: This is a 68-year-old male with a past medical history significant for pancreatic cancer with chemotherapy and radiation and kidney stones. Patient does not follow with a laser technician. We have been asked to see the patient in consultation for atrial fibrillation. Patient examined at the bedside. Patient spouse is at the bedside. Patient presented to the hospital with a chief complaint of black stools x 3 to 4 days. Patient was found to be anemic. Most recent hemoglobin 6.8. Patient is scheduled to undergo endoscopy this afternoon. Patient was also found to be in atrial fibrillation with controlled ventricular rate. The patient denies any previous history of atrial fibrillation. However this is documented on the history and physical by Dr. Thang manning. However, patient and spouse deny history of atrial fibrillation. There are no previous EKGs available in the EMR for review. The patient was not anticoagulated on an outpatient basis. DIAGNOSTICS: - EKG reveals atrial fibrillation with controlled ventricular rate - Laboratory data: WBC 4.7. Hemoglobin 6.8. Platelet count 96. Sodium 136. Potassium 3.7. BUN 18. Creatinine 0.38. Troponin negative x 1. - Current home cardiac medications include none REVIEW OF SYSTEMS: At the time of my exam: CONSTITUTIONAL: Denies fever or chills. HEENT: Denies blurred vision, vision changes, or eye pain. Denies hemoptysis CARDIOVASCULAR: Denies chest pain. Denies orthopnea. Denies PND. Denies palpitations RESPIRATORY: Denies shortness of breath. GASTROINTESTINAL: Denies abdominal pain. Denies nausea or vomiting. HEMATOLOGIC: Denies bleeding disorders. GENITOURINARY: Denies any blood in urine. SKIN: Denies pruitis. Denies rash. PHYSICAL EXAM: VITAL SIGNS: Reviewed. GENERAL: Well-developed in no acute distress. HEENT: Head is normocephalic. Pupils are equal, round. Sclerae anicteric. Mucous membranes of the mouth are moist. Neck supple. No JVD or thyromegaly LUNGS: Respirations even and unlabored. Lungs essentially clear to auscultation bilaterally. HEART: Irregular rate and rhythm. S1 and S2 heard. ABDOMEN: Soft. Nondistended. Nontender. EXTREMITIES: Normal range of motion. No clubbing or cyanosis. Peripheral pulses intact. No lower extremity edema NEUROLOGIC: Awake and alert. Oriented x 3. ASSESSMENT: Melena Acute blood loss anemia Suspected upper GI bleed Atrial fibrillation with controlled ventricular rate. Unknown duration, appears to be new onset, patient denies history of atrial fibrillation History of pancreatic cancer with previous chemotherapy History of kidney stones PLAN: Obtain 2D echo to assess cardiac structure and function Obtain TSH Continue telemetry monitoring No anticoagulation due to acute anemia Further recommendations pending patient course Nurse practitioner note has been reviewed by physician. Signing provider agrees with the documented findings, assessment, and plan of care documented by HELICOPTER SPECIALIST as a scribe. Past Medical History Past Medical History: Hyperlipidemia, Hypertension, Osteoarthritis (OA) Additional Past Medical History / Comment(s): Farming accident to left medial calf/erickson History of Any Multi-Drug Resistant Organisms: None Reported Past Surgical History: Orthopedic Surgery Additional Past Surgical History / Comment(s): multiple surgeries to left calf related to farming accident Past Anesthesia/Blood Transfusion Reactions: No Reported Reaction Past Psychological History: No Psychological Hx Reported Smoking Status: Current every day smoker Past Alcohol Use History: Occasional Past Drug Use History: None Reported Medications and Allergies Home Medications Medication Instructions Recorded Confirmed Type ALPRAZolam [Xanax] 0.5 mg PO TID PRN 11/08/23 11/08/23 History Diphenox-Atrop 2.5-0.025 mg 1 - 2 tab PO Q6HR PRN 11/08/23 11/08/23 History [Lomotil] Ondansetron Odt [Zofran Odt] 8 mg PO Q8H PRN 11/08/23 11/08/23 History Tamsulosin [Flomax] 0.4 mg PO PC-SUPPER 11/08/23 11/08/23 History Allergies Allergy/AdvReac Type Severity Reaction Status Date / Time Latex, Natural Rubber Allergy Unknown Verified 11/08/23 14:52 Physical Exam Vitals: Vital Signs Temp Pulse Pulse Resp BP BP Pulse Ox 11/09/23 08:10 97.7 F 80 18 97/65 95 11/09/23 04:00 97.9 F 79 16 96/57 98 11/09/23 00:00 97.9 F 91 16 90/56 95 11/08/23 21:18 98 F 98 18 108/71 100 11/08/23 20:20 98.3 F 84 14 92/64 97 11/08/23 19:33 98.1 F 92 18 92/54 95 11/08/23 18:39 89 18 97/61 98 11/08/23 14:50 98.1 F 86 16 95/66 98 Intake and Output 11/08/23 11/09/23 11/09/23 22:59 06:59 14:59 Intake Total 800 Output Total 250 Balance -250 800 Intake: Intake, IV Titration 800 Amount Sodium Chloride 0.9% 1, 800 000 ml @ 100 mls/hr IV . Q10H STA Rx#:[id number] Output: Urine 250 Other: Voiding Method Toilet Toilet # Voids 1 1 Weight 60.328 kg 61.5 kg Results 11/09/23 10:16 11/09/23 10:16 Cardiac Enzymes 11/08/23 11/08/23 11/09/23 Range/Units 16:18 16:18 10:16 AST 28 24 (17-59) U/L Troponin I <0.012 (0.000-0.034) ng/mL Coagulation 11/08/23 Range/Units 16:18 PT 11.1 (10.0-12.5) sec APTT 31.7 H (22.0-30.0) sec CBC 11/08/23 11/08/23 11/09/23 Range/Units 16:18 21:41 10:16 WBC 9.0 5.8 4.7 (3.8-10.6) k/uL RBC 2.55 L 2.28 L 2.21 L (4.30-5.90) m/uL Hgb 8.1 L 7.0 L 6.8 L* (13.0-17.5) gm/dL Hct 24.6 L 22.5 L 21.5 L (39.0-53.0) % Plt Count 139 L 95 L 96 L (150-450) k/uL Comprehensive Metabolic Panel 11/08/23 11/09/23 Range/Units 16:18 10:16 Sodium 136 L 136 L (137-145) mmol/L Potassium 4.1 3.7 (3.5-5.1) mmol/L Chloride 102 108 H (98-107) mmol/L Carbon Dioxide 29 27 (22-30) mmol/L BUN 26 H 18 (9-20) mg/dL Creatinine 0.41 L 0.38 L (0.66-1.25) mg/dL Glucose 96 77 (74-99) mg/dL Calcium 8.6 8.0 L (8.4-10.2) mg/dL AST 28 24 (17-59) U/L ALT 23 19 (4-49) U/L Alkaline Phosphatase 155 H 136 H (38-126) U/L Total Protein 5.6 L 4.9 L (6.3-8.2) g/dL Albumin 3.2 L 2.6 L (3.5-5.0) g/dL Current Medications Generic Name Dose Route Start Last Admin Trade Name Freq PRN Reason Stop Dose Admin Alprazolam 0.5 mg 11/08/23 17:57 11/08/23 21:37 Alprazolam 0.5 Mg Tab PO 0.5 mg TID PRN Administration Anxiety Diphenoxylate HCl/Atropine 1 each 11/08/23 17:57 Diphenox-Atrop 2.5-0.025 Mg 1 Each Tab PO Q6HR PRN Diarrhea Hydromorphone HCl 1 mg 11/08/23 16:00 Hydromorphone 1 Mg/Ml 1 Ml Syringe IVP Q3HR PRN Severe Pain (Scale 7 to 10) Sodium Chloride 1,000 mls @ 75 mls/hr 11/09/23 08:00 11/09/23 08:13 Saline 0.9% IV 75 mls/hr .[id number] DARON Administration Naloxone HCl 0.2 mg 11/08/23 16:00 Naloxone 0.4 Mg/Ml 1 Ml Vial IV Q2M PRN Opioid Reversal Nicotine 1 patch 11/09/23 09:00 11/09/23 08:12 Nicotine 14mg/24hr Patch TRANSDERM 1 patch DAILY DARON Administration Ondansetron HCl 4 mg 11/08/23 16:00 Ondansetron 4 Mg/2 Ml Vial IVP Q8HR PRN Nausea And Vomiting Pantoprazole Sodium 40 mg 11/08/23 21:00 11/09/23 08:12 Pantoprazole 40 Mg/10 Ml Vial IV 40 mg BID DARON Administration Tamsulosin HCl 0.4 mg 11/08/23 18:30 11/08/23 19:01 Tamsulosin 0.4 Mg Cap.Er.24h PO 0.4 mg PC-SUPPER DARON Administration Intake and Output 11/08/23 11/09/23 11/09/23 22:59 06:59 14:59 Intake Total 800 Output Total 250 Balance -250 800 Intake: Intake, IV Titration 800 Amount Sodium Chloride 0.9% 1, 800 000 ml @ 100 mls/hr IV . Q10H STA Rx#:[id number] Output: Urine 250 Other: Voiding Method Toilet Toilet # Voids 1 1 Weight 60.328 kg 61.5 kg 11/09/23 10:16 11/09/23 10:16
[2023-11-09] MEDS: IV FLUID CONTINUATION 1,000 ML IV ONE ×2 (13:10→13:28)
[2023-11-09] MEDS ORDERED: ETOMIDATE 2 MG/ML 10 ML VIAL ONE (13:13)
[2023-11-09] MEDS ORDERED: PROPOFOL 10 MG/ML 20 ML VIAL IV ONE (13:13)
--- NOTE | 2023-11-09 13:28 | P.PCN ---
Date of Procedure: 11/09/23 Procedure(s) Performed: BRIEF HISTORY: Patient is a 68-year-old, pleasant, white female scheduled for an upper endoscopy as a part evaluation of black-colored stools for the last 3 days duration. His initial hemoglobin was 8.1 g/dL with subsequently dropped to 6.8 and currently receiving 1 unit of PRBC transfusion. History of pancreatic cancer diagnosed in November of last year s/p radiation therapy at [facility]. He is seeing Dr. Isaac, oncologist at [facility]. PROCEDURE PERFORMED: Esophagogastroduodenoscopy with biopsy and Endo Clip placement. PREOPERATIVE DIAGNOSIS: Black tarry stools of 3 days duration/symptomatic anemia. IV sedation per anesthesia. PROCEDURE: After informed consent was obtained, the patient was brought into the endoscopy unit. IV sedation was administered by Anesthesia under continuous monitoring. Initially the Olympus GIF-140 video endoscope was inserted into the mouth. Esophagus intubated without any difficulty. It was gradually advanced into the stomach and duodenum and carefully examined. The bulb and the second part of the duodenum appeared normal. The scope at this time was withdrawn to the stomach, adequately insufflated with air, and upon careful examination, mucosa of the antrum, had a large 4 cm deep ulceration with a spot suspicious for visible vessel with brownish pigmentation but no active bleeding. S/p Endo Clip placement biopsies were done for margin of the ulcer. Just proximal to this also there was another linear 3 cm ulceration identified with no active bleeding. Mucosa of the body, cardia and the fundus appeared normal. The scope was then withdrawn into the esophagus. The GE junction was located at 39 cm from the incisors. The esophagus appeared normal. There were no erosions or ulcerations seen and the patient tolerated the procedure well. IMPRESSION: 1. 4 cm large antral ulcer with a pigmented spot but no active bleeding s/p Endo Clip placement followed by biopsies. 2. 3 cm linear ulceration in the proximal antrum of the stomach. RECOMMENDATIONS: The findings of this examination were discussed with the patient. Continue with Protonix 40 mg twice daily and monitor CBC every 6 hours. Transfuse if hemoglobin is less than 7 g/dL. Start him on a clear liquid diet..
[2023-11-09] MEDS: ONDANSETRON 4 MG/2 ML VIAL IVP PRN (15:08)
[2023-11-09 16:02] LABS: Iron 39 UG/DL (65-175); Total Iron Binding Capacity 235 UG/DL (228-460)
[2023-11-09] MEDS: HYDROcodone/APAP 5-325MG 1 EACH TAB PO PRN (20:42)
[2023-11-09 20:44] LABS: HCT 23.7 % (39.0-53.0); HGB 7.6 gm/dL (13.0-17.5); MCH 31.8 pg (25.0-35.0); MCHC 32.2 g/dL (31.0-37.0); MCV 98.9 fL (80.0-100.0); Macrocytosis Slight; Mean Platelet Volume 8.6; Platelet Count 104 k/uL (150-450); RDW 14.6 % (11.5-15.5); WBC 5.5 k/uL (3.8-10.6)
--- NOTE | 2023-11-10 06:06 | P.PN ---
Subjective Progress Note Date: 11/09/23 HISTORY OF PRESENT ILLNESS: 68-year-old office patient with active medical history of pancreatic cancer, history of polycythemia vera, kidney stone with mild hydronephrosis, hyperten raul, hyperlipidemia, atrial fibrillation not on any anticoagulation who has been treated promptly for pancreatic cancer had radiation and chemotherapy last cycle was few weeks ago he was seen his oncologist at [facility] and seen genetics physician at [facility] as well. He was recently in the office for recurrent abdominal discomfort with mild hematuria and BPH symptoms CAT scan of the abdomen done recently showed kidney stone with mild hydronephrosis and sign of upper urinary infection was started on Cipro and Flomax and has done well. He called the office today with a concern of tarry stool, severe fatigue and tiredness, increased abdominal pain mostly in the epigastric area started Sat urday of this week become slightly bit worse since and has been having tarry black stool since with slightly frequent bowel movement. Was seen and evaluated in the office his hemoglobin from the time before was 12 g stat CBC was done in the office came back at 9.0. Patient was referred to the emergency department for gastrointestinal bleed he ended up with hemoglobin of 8.1 with a short period of time from the timing of the office to coming to the hospital. Patient was admitted for gastrointestinal bleed most likely upper GI his pulse was slightly bit irregular, has A-fib and has been having history of A-fib for a while did not require any anticoagulation was seen cardiology previously with his current history of gastrointestinal cancer and the higher evidence for anemia and complication he is not on any anticoagulation. 11/09/2023: Hemoglobin dropped down to 6.8 and required 1 unit of blood transfusion which corrected hemoglobin up to 7.6. After patient seen gastroenterology decided to pursue EGD which was done shortly in the afternoon shows 4 cm large antral ulcer with pigmented spot but no active bleed status post clip placement followed by biopsy also had 3 cm line or ulceration of the proximal antrum of the stomach recommended to continue pantoprazole 40 mg twice a day continue to repeat CBC every 6 hours to make sure there is no active bleed. Patient is resting comfortably at this point no sign of active bleed continue to have black stool. Also patient was started on clear liquid diet. Will continue CBC continue to watch for any further active bleed as my concern there is no reason to run or do colonoscopy finding with the EGD itself is more satisfactory for the source of bleeding and hopefully further management. REVIEW OF SYSTEMS: CONSTITUTIONAL: Well-developed no acute respiratory distress. Quite bit pale. EYES: No icterus sclerae, no conjunctivitis. EARS, NOSE, MOUTH, THROAT, and FACE: No sore throat, lymphadenopathy, carotid bruits or deformity. RESPIRATORY: No SOB cough or wheezes. CARDIOVASCULAR: No CP, positive palpitation and PND, Orthopnea, without angina. GASTROINTESTINAL: Positive abdominal pain with nausea positive diarrhea with black stool and recurrent GI bleed without any bright blood per rectum. History of pancreatic cancer. GENITOURINARY: Negative for Hematuria or UTI, no kidney stones. Mild BPH symptoms. INTEGUMENT/BREAST: Negative for any muscular injury with mild osteoarthritis.. HEMATOLOGIC/LYMPHATIC: Negative for bleed or purpura. MUSCULOSKELTAL: Negative for Myalgia or arthralgia. NEURLOGICAL: No LOC, Sz or syncope, blurred vision dizziness or abnormality.. BEHAVIORAL/PSYCH: Negative. ENDOCRINE: Negative. PHYSICAL EXAMINATION: General Appearance: Alert, cooperative, no distress, appears stated age. Neck HEENT: Supple, no lymphadenopathy, no thyroid enlargement, no carotid bruits. Lungs: Clear to auscultation without crackles or wheezes no rhonchi, no deformity. Chest Wall: Chest wall normal expansion with deep inspiration no tenderness and no deformity was found on exam, no costochondral pain or discomfort. Heart: Irregular rate and rhythm, S1, S2 normal, positive systolic murmur at the apex. Back: Symmetric, no curvature, ROM normal, no CVA tenderness. Mild scoliosis and discomfort. Abdomen: Soft, bowel sounds active all four quadrants, slight discomfort in the epigastric area and mid abdominal area without rebound or rigidity. Extremities: Extremities normal, atraumatic, no cyanosis or edema. Old scar tis perla on the left calvarium. Pulses: 2+ and symmetric. Skin: Skin color, texture, tugor normal, no rashes or lesions. Neurologic: Alert oriented x3 cranial nerves II through XII intact, no motor deficit, no abnormal balance or gait. ASSESSMENT AND PLAN: _Acute gastrointestinal bleed: Upper endoscopy was performed and showed 2 large ulcer biopsy was taking none of them is an active bleed at the time seem like Dr. Dumont is happy with the result patient need to be watched a bit more carefully for at least 24-48 more hours. _Acute blood loss anemia: Transfusion for 1 unit of RBC corrected hemoglobin to above 7 g will repeat CBC again later today and tomorrow morning. _History of pancreatic cancer: Had radiation therapy and seen oncology and was the plan to go for intervention with possible [facility] at [facility] procedure currently can delay. _History of polycythemia vera: Has been seen by an oncologist at [facility] on more regular basis was doing hydroxyurea previously. He is not on medication currently. _Recent history of kidney stone with mild hydronephrosis found via CAT scan patient was treated remain on Flomax. _Abdominal aortic aneurysm with size of 3.8 cm small and to be watch not in any active treatment. _Hypertension: Has been on lisinopril hydrochlorothiazide 10/12.5 mg a day hold medication if systolic blood pressure below 110. _Hyperlipidemia: Has been on simvastatin 20 mg a day. _A-fib with well-controlled pulse rate running in the 70s to 90s was on atenolol previously he is not on any anticoagulation. _BPH: Continue Flomax watch for any urinary retention. _GI prophylaxis: Continue pantoprazole IV. Discussion: Patient is more stable today after having his EGD and transfusion hemoglobin is stable and he is not in any active bleed but had another episode of black stool still watching for any further decline ended to large ulcer seen with the EGD by Dr. Dumont with no active bleed but any of them can start to bleeding all of a sudden so the patient will need to remain on proton pump inhibitor twice a day currently but the longer run on at least once a day. Objective - Vital Signs Vital signs: Vital Signs Temp 97.9 F 11/09/23 04:00 Pulse 79 11/09/23 04:00 Resp 16 11/09/23 04:00 BP 96/57 11/09/23 04:00 Pulse Ox 98 11/09/23 04:00 FiO2 Intake & Output 11/08/23 11/08/23 11/09/23 06:59 18:59 06:59 Output Total 250 Balance -250 Weight 60.328 kg 61.5 kg Output: Urine 250 Other: Voiding Method Toilet # Voids 1 - Labs CBC & Chem 7: 11/09/23 20:05 11/09/23 10:16 Labs: Abnormal Lab Results - Last 24 Hours (Table) 11/08/23 11/08/23 11/08/23 Range/Units 16:18 16:18 16:18 RBC 2.55 L (4.30-5.90) m/uL Hgb 8.1 L (13.0-17.5) gm/dL Hct 24.6 L (39.0-53.0) % Plt Count 139 L (150-450) k/uL Lymphocytes # 0.7 L (1.0-4.8) k/uL APTT 31.7 H (22.0-30.0) sec Sodium 136 L (137-145) mmol/L BUN 26 H (9-20) mg/dL Creatinine 0.41 L (0.66-1.25) mg/dL Alkaline Phosphatase 155 H (38-126) U/L Total Protein 5.6 L (6.3-8.2) g/dL Albumin 3.2 L (3.5-5.0) g/dL 11/08/23 Range/Units 21:41 RBC 2.28 L (4.30-5.90) m/uL Hgb 7.0 L (13.0-17.5) gm/dL Hct 22.5 L (39.0-53.0) % Plt Count 95 L (150-450) k/uL Lymphocytes # 0.7 L (1.0-4.8) k/uL APTT (22.0-30.0) sec Sodium (137-145) mmol/L BUN (9-20) mg/dL Creatinine (0.66-1.25) mg/dL Alkaline Phosphatase (38-126) U/L Total Protein (6.3-8.2) g/dL Albumin (3.5-5.0) g/dL
[2023-11-10 09:12] LABS: HCT 26.8 % (39.0-53.0); HGB 8.5 gm/dL (13.0-17.5); MCH 31.4 pg (25.0-35.0); MCHC 31.8 g/dL (31.0-37.0); MCV 98.7 fL (80.0-100.0); Macrocytosis Slight; Mean Platelet Volume 8.9; Platelet Count 110 k/uL (150-450); RBC 2.72 m/uL (4.30-5.90); RDW 15.2 % (11.5-15.5); WBC 5.2 k/uL (3.8-10.6)
[2023-11-10 09:22] LABS: ALT 20 U/L (4-49); AST 27 U/L (17-59); African American GFR (CKD) >90 (>60 ml/min/1.73 sqM); Albumin 2.9 g/dL (3.5-5.0); Alkaline Phosphatase 164 U/L (38-126); Anion Gap 5 mmol/L; Blood Urea Nitrogen 12 mg/dL (9-20); Calcium 8.3 mg/dL (8.4-10.2); Carbon Dioxide 23 mmol/L (22-30); Chloride 111 mmol/L (98-107); Glucose 89 mg/dL (74-99); Non-African American GFR(CKD) >90 (>60 ml/min/1.73 sqM); Potassium 3.3 mmol/L (3.5-5.1); Sodium 139 mmol/L (137-145); Total Bilirubin 0.8 mg/dL (0.2-1.3); Total Protein 5.2 g/dL (6.3-8.2)
[2023-11-10] MEDS ORDERED: Potassium Replacement Protocol 1 EACH MISC MISCELLANE PRN (11:36)
[2023-11-10] MEDS: POTASSIUM CHLORIDE ER 20 MEQ TAB.ER PO SCH (12:19)
--- NOTE | 2023-11-10 13:29 | P.PN ---
Subjective HISTORY OF PRESENT ILLNESS: This is a 68-year-old male with a past medical history significant for pancreatic cancer with chemotherapy and radiation and kidney stones. 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 We have been asked to see the patient in consultation for atrial fibrillation. Patient examined at the bedside. Patient spouse is at the bedside. Patient presented to the hospital with a chief complaint of black stools x 3 to 4 days. Patient was found to be anemic. Most recent hemoglobin 6.8. Patient is scheduled to undergo endoscopy this afternoon. Patient was also found to be in atrial fibrillation with controlled ventricular rate. The patient denies any previous history of atrial fibrillation. However this is documented on the history and physical by Dr. Deras. However, patient and spouse deny history of atrial fibrillation. There are no previous EKGs available in the EMR for review. The patient was not anticoagulated on an outpatient basis. DIAGNOSTICS: - EKG reveals atrial fibrillation with controlled ventricular rate - Laboratory data: WBC 4.7. Hemoglobin 6.8. Platelet count 96. Sodium 136. Potassium 3.7. BUN 18. Creatinine 0.38. Troponin negative x 1. - Current home cardiac medications include none 11/10/2023 Patient is status post EGD revealing 4 cm large antral ulcer and 3 cm linear ulceration in the proximal antrum of the stomach. Patient examined this morning at the bedside. Patient's family is present. Patient currently denies chest pain or pressure. He denies shortness of breath. Telemetry reveals atrial fibrillation with controlled ventricular rate. Vital signs are stable. PHYSICAL EXAM: VITAL SIGNS: Reviewed. GENERAL: Well-developed in no acute distress. HEENT: Head is normocephalic. Pupils are equal, round. Sclerae anicteric. Mucous membranes of the mouth are moist. Neck supple. No JVD or thyromegaly LUNGS: Respirations even and unlabored. Lungs essentially clear to auscultation bilaterally. HEART: Irregular rate and rhythm. S1 and S2 heard. ABDOMEN: Soft. Nondistended. Nontender. EXTREMITIES: Normal range of motion. No clubbing or cyanosis. Peripheral p ulses intact. No lower extremity edema NEUROLOGIC: Awake and alert. Oriented x 3. ASSESSMENT: Melena Acute blood loss anemia Upper GI bleed Status post EGD revealing 4 cm large antral ulcer and 3 cm linear ulceration in the proximal antrum of the stomach. Atrial fibrillation with controlled ventricular rate. Unknown duration, appears to be new onset, patient denies history of atrial fibrillation History of pancreatic cancer with previous chemotherapy History of kidney stones PLAN: 2D echo has been ordered. Await results. Continue telemetry monitoring No anticoagulation due to acute anemia Stable from a cardiac standpoint Further recommendations pending patient course Nurse practitioner note has been reviewed by physician. Signing provider agrees with the documented findings, assessment, and plan of care documented by GREENS PLANTER as a scribe. Objective - Vital Signs Vital signs: Vital Signs Temp 97.9 F 11/10/23 11:38 Pulse 78 11/10/23 11:38 Resp 20 11/10/23 11:38 BP 108/68 11/10/23 11:38 Pulse Ox 97 11/10/23 11:38 FiO2 Intake & Output 11/09/23 11/10/23 11/10/23 18:59 06:59 18:59 Intake Total 560 Balance 560 Weight 63.2 kg Intake: IV 200 Oral 50 Blood Product 310 Rc As-1 Unit 310 [id number] Other: Voiding Method Toilet Toilet # Voids 1 1 1 # Bowel Movements 1 1 - Labs CBC & Chem 7: 11/10/23 08:46 11/10/23 08:46 Labs: Abnormal Lab Results - Last 24 Hours (Table) 11/08/23 11/09/23 11/09/23 Range/Units 16:00 10:16 20:05 RBC 2.40 L (4.30-5.90) m/uL Hgb 7.6 L (13.0-17.5) gm/dL Hct 23.7 L (39.0-53.0) % Plt Count 104 L (150-450) k/uL Potassium (3.5-5.1) mmol/L Chloride (98-107) mmol/L Creatinine (0.66-1.25) mg/dL Calcium (8.4-10.2) mg/dL Iron 39 L (65-175) UG/DL Transferrin 168.0 L (204.0-354.0) mg/dL Alkaline Phosphatase (38-126) U/L Total Protein (6.3-8.2) g/dL Albumin (3.5-5.0) g/dL Crossmatch See Detail 11/10/23 11/10/23 Range/Units 08:46 08:46 RBC 2.72 L (4.30-5.90) m/uL Hgb 8.5 L (13.0-17.5) gm/dL Hct 26.8 L (39.0-53.0) % Plt Count 110 L (150-450) k/uL Potassium 3.3 L (3.5-5.1) mmol/L Chloride 111 H (98-107) mmol/L Creatinine 0.42 L (0.66-1.25) mg/dL Calcium 8.3 L (8.4-10.2) mg/dL Iron (65-175) UG/DL Transferrin (204.0-354.0) mg/dL Alkaline Phosphatase 164 H (38-126) U/L Total Protein 5.2 L (6.3-8.2) g/dL Albumin 2.9 L (3.5-5.0) g/dL Crossmatch
[2023-11-10] MEDS: DIPHENOX-ATROP 2.5-0.025 MG 1 EACH TAB PO PRN (14:43)
--- NOTE | 2023-11-10 15:20 | P.PN ---
Subjective Progress Note Date: 11/10/23 Principal diagnosis: Melena, weakness This is a pleasant 68-year-old male with a past medical history including polycythemia vera, hyperlipidemia, hypertension, possible atrial fibrillation not on anticoagulation, kidney stone with hydronephrosis and pancreatic cancer with recent chemotherapy and radiation therapy. Last radiation treatment in July this year. Patient states he started noticing black stools Tuesday morning which have been loose he was having multiple prior to coming into the hospital but has only had 1 yesterday morning. States it was still black, no ab dominal pain but states that he does have some epigastric discomfort and has been having more recent complaints of heartburn/acid reflux. He denies any difficulty swallowing. He denies any NSAID use states he only uses Tylenol. Denies any previous history of GI bleed. He had a screening colonoscopy in [place] [address] Chisholm with findings of diverticulosis and multiple polyps status post polypectomy. He states that as part of his workup for his pancreatic cancer which she follows with [facility] in [place] he had a colonoscopy last year which she states was normal. No prior upper endoscopy. No history of peptic ulcer disease. Hemoglobin 7.0 yesterday platelets 95,000 with elevated BUN 26. 11/10/2023 Patient seen and examined as a follow-up. He is sitting up in his chair. He was up to the bathroom. Yesterday he underwent upper endoscopy with findings of large antral ulcer without any active bleeding with Endo Clip placement and linear ulceration to the proximal antrum of the stomach. Patient hemoglobin stable at 8.5. States he did have a bowel movement with a black stool this morning. He denies any abdominal pain, tolerating clear liquid diet. Objective - Vital Signs Vital signs: Vital Signs Temp 97.7 F 11/10/23 04:00 Pulse 73 11/10/23 04:00 Resp 16 11/10/23 04:00 BP 110/70 11/10/23 04:00 Pulse Ox 98 11/10/23 04:00 FiO2 Intake & Output 11/09/23 11/10/23 11/10/23 18:59 06:59 18:59 Intake Total 560 Balance 560 Weight 63.2 kg Intake: IV 200 Oral 50 Blood Product 310 Rc As-1 Unit 310 [id number] Other: Voiding Method Toilet Toilet # Voids 1 1 # Bowel Movements 1 - Exam General appearance: The patient is alert, oriented, appears in no acute distress. HET: Head is normocephalic and atraumatic. Conjunctiva pink. Sclera anicteric. Neck: Supple without lymphadenopathy. Abdomen: Soft, nontender, nondistended with bowel sounds. No guarding or rigidity. Extremities: Normal skin color and turgor. No pedal edema Skin: No rashes, no jaundice Neurological: No focal deficits. Alert and oriented. - Labs CBC & Chem 7: 11/10/23 08:46 11/10/23 08:46 Labs: Abnormal Lab Results - Last 24 Hours (Table) 11/08/23 11/09/23 11/09/23 Range/Units 16:00 10:16 10:16 RBC 2.21 L (4.30-5.90) m/uL Hgb 6.8 L* (13.0-17.5) gm/dL Hct 21.5 L (39.0-53.0) % Plt Count 96 L (150-450) k/uL Lymphocytes # 0.4 L (1.0-4.8) k/uL Sodium 136 L (137-145) mmol/L Chloride 108 H (98-107) mmol/L Creatinine 0.38 L (0.66-1.25) mg/dL Calcium 8.0 L (8.4-10.2) mg/dL Iron 39 L (65-175) UG/DL Transferrin 168.0 L (204.0-354.0) mg/dL Alkaline Phosphatase 136 H (38-126) U/L Total Protein 4.9 L (6.3-8.2) g/dL Albumin 2.6 L (3.5-5.0) g/dL Crossmatch See Detail 11/09/23 Range/Units 20:05 RBC 2.40 L (4.30-5.90) m/uL Hgb 7.6 L (13.0-17.5) gm/dL Hct 23.7 L (39.0-53.0) % Plt Count 104 L (150-450) k/uL Lymphocytes # (1.0-4.8) k/uL Sodium (137-145) mmol/L Chloride (98-107) mmol/L Creatinine (0.66-1.25) mg/dL Calcium (8.4-10.2) mg/dL Iron (65-175) UG/DL Transferrin (204.0-354.0) mg/dL Alkaline Phosphatase (38-126) U/L Total Protein (6.3-8.2) g/dL Albumin (3.5-5.0) g/dL Crossmatch Assessment and Plan (1) Anemia Narrative/Plan: 68-year-old male presenting with weakness and black stools since Tuesday. No previous history of GI bleed however does have pancreatic cancer his completed chemotherapy and recently completed radiation therapy last treatment and July of this year. Reported history of atrial fibrillation not on any anticoagulation presented with anemia. Unclear etiology patient has been complaining of epigastric discomfort and GERD. No NSAID use. Possible etiologies include peptic ulcer disease, AVM, gastritis, esophagitis or other possible etiologies. Recommend proceeding with upper endoscopy as patient has had a drop in hemoglobin to 6.8 today, elevated BUN which can be seen with upper GI bleed. Current Visit: Yes Status: Acute Code(s): D64.9 - ANEMIA, UNSPECIFIED SNOMED Code(s): 253892563 (2) Antral ulcer Narrative/Plan: Patient underwent upper endoscopy with findings of large antral ulcer without any active bleeding with Endo Clip placement. Additional linear ulceration noted on the proximal antrum of the stomach. Continue with Protonix 40 mg twice daily. Current Visit: Yes Status: Acute Code(s): K25.9 - GASTRIC ULCER, UNSP ACUTE OR CHRONIC, W/O HEMOR OR PERF SNOMED Code(s): 2952293985140 (3) Melena Current Visit: Yes Status: Acute Code(s): K92.1 - MELENA SNOMED Code(s): 1550100 (4) Pancreatic cancer Current Visit: Yes Status: Acute Code(s): C25.9 - MALIGNANT NEOPLASM OF PANCREAS, UNSPECIFIED SNOMED Code(s): 036907726 (5) Polycythemia vera Current Visit: Yes Status: Acute Code(s): D45 - POLYCYTHEMIA VERA SNOMED Code(s): 408499028 (6) Nicotine addiction Current Visit: No Status: Acute Code(s): F17.200 - NICOTINE DEPENDENCE, UNSPECIFIED, UNCOMPLICATED SNOMED Code(s): 75059805 Plan: 1. Continue symptomatic and supportive care 2. Daily CBC, transfuse for hemoglobin less than 7 3. Continue Protonix 40 mg twice daily 4. Advance to full liquid diet and advance as tolerated 5. Recommend smoking cessation 6. No further workup from gastroenterology 7. Patient will need follow-up with gastroenterology and 1 to 2 weeks for biopsy results Thank you for this consultation, we will continue to follow. Dr. Sarabjit Al I agree with the dictator's note, documented as a scribe by Melina Bradford.
--- NOTE | 2023-11-11 05:52 | P.PN ---
Subjective Progress Note Date: 11/10/23 HISTORY OF PRESENT ILLNESS: 68-year-old office patient with active medical history of pancreatic cancer, history of polycythemia vera, kidney stone with mild hydronephrosis, hyperten raul, hyperlipidemia, atrial fibrillation not on any anticoagulation who has been treated promptly for pancreatic cancer had radiation and chemotherapy last cycle was few weeks ago he was seen his oncologist at [facility] and seen clinical courier at [facility] as well. He was recently in the office for recurrent abdominal discomfort with mild hematuria and BPH symptoms CAT scan of the abdomen done recently showed kidney stone with mild hydronephrosis and sign of upper urinary infection was started on Cipro and Flomax and has done well. He called the office today with a concern of tarry stool, severe fatigue and tiredness, increased abdominal pain mostly in the epigastric area started Sat urday of this week become slightly bit worse since and has been having tarry black stool since with slightly frequent bowel movement. Was seen and evaluated in the office his hemoglobin from the time before was 12 g stat CBC was done in the office came back at 9.0. Patient was referred to the emergency department for gastrointestinal bleed he ended up with hemoglobin of 8.1 with a short period of time from the timing of the office to coming to the hospital. Patient was admitted for gastrointestinal bleed most likely upper GI his pulse was slightly bit irregular, has A-fib and has been having history of A-fib for a while did not require any anticoagulation was seen cardiology previously with his current history of gastrointestinal cancer and the higher evidence for anemia and complication he is not on any anticoagulation. 11/09/2023: Hemoglobin dropped down to 6.8 and required 1 unit of blood transfusion which corrected hemoglobin up to 7.6. After patient seen gastroenterology decided to pursue EGD which was done shortly in the afternoon shows 4 cm large antral ulcer with pigmented spot but no active bleed status post clip placement followed by biopsy also had 3 cm line or ulceration of the proximal antrum of the stomach recommended to continue pantoprazole 40 mg twice a day continue to repeat CBC every 6 hours to make sure there is no active bleed. Patient is resting comfortably at this point no sign of active bleed continue to have black stool. Also patient was started on clear liquid diet. Will continue CBC continue to watch for any further active bleed as my concern there is no reason to run or do colonoscopy finding with the EGD itself is more satisfactory for the source of bleeding and hopefully further management. In 11/10/2023: Hemoglobin still stable after transfusion and up to 8.5 today with no active bleed but patient still seeing black stool when he is in the bathroom. Review gastroenterology workup showed 2 large ulcer 1 is 3 and 1 is 4 cm none of them is having any bleeding at the time and apparently have an Endo Clip placement and liner ulceration to the proximal antrum of the stomach will continue to watch for 24 hours if no further bleeding or drop in hemoglobin patient be safe to be discharged home with that caution to watch for any further bleed if he does might require further intervention including embolization to stop the bleeding. Also patient seen cardiology for stable A-fib with pulse rate running between 60s and 90s cannot be on anticoagulation from the bleed and from his history of pancreatic cancer into the treatment going through for the time being. If the circumstances change will do further management otherwise for now we will continue rate control without anticoagulation. Echocardiogram again was order was done as not read to make an appointment for patient to see cardiology as an outpatient. I have long discussion with patient and his sisters on the current finding and the prognosis is really understand they understand probably discharge extremely high tomorrow unless we have repleted again. REVIEW OF SYSTEMS: CONSTITUTIONAL: Well-developed no acute respiratory distress. Quite bit pale. EYES: No icterus sclerae, no conjunctivitis. EARS, NOSE, MOUTH, THROAT, and FACE: No sore throat, lymphadenopathy, carotid bruits or deformity. RESPIRATORY: No SOB cough or wheezes. CARDIOVASCULAR: No CP, positive palpitation and PND, Orthopnea, without angina. GASTROINTESTINAL: Positive abdominal pain with nausea positive diarrhea with black stool and recurrent GI bleed without any bright blood per rectum. History of pancreatic cancer. GENITOURINARY: Negative for Hematuria or UTI, no kidney stones. Mild BPH symptoms. INTEGUMENT/BREAST: Negative for any muscular injury with mild osteoarthritis.. HEMATOLOGIC/LYMPHATIC: Negative for bleed or purpura. MUSCULOSKELTAL: Negative for Myalgia or arthralgia. NEURLOGICAL: No LOC, Sz or syncope, blurred vision dizziness or abnormality.. BEHAVIORAL/PSYCH: Negative. ENDOCRINE: Negative. PHYSICAL EXAMINATION: General Appearance: Alert, cooperative, no distress, appears stated age. Neck HEENT: Supple, no lymphadenopathy, no thyroid enlargement, no carotid bruits. Lungs: Clear to auscultation without crackles or wheezes no rhonchi, no deformity. Chest Wall: Chest wall normal expansion with deep inspiration no tenderness and no deformity was found on exam, no costochondral pain or discomfort. Heart: Irregular rate and rhythm, S1, S2 normal, positive systolic murmur at the apex. Back: Symmetric, no curvature, ROM normal, no CVA tenderness. Mild scoliosis and discomfort. Abdomen: Soft, bowel sounds active all four quadrants, slight discomfort in the epigastric area and mid abdominal area without rebound or rigidity. Extremities: Extremities normal, atraumatic, no cyanosis or edema. Old scar tissue on the left calvarium. Pulses: 2+ and symmetric. Skin: Skin color, texture, tugor normal, no rashes or lesions. Neurologic: Alert oriented x3 cranial nerves II through XII intact, no motor deficit, no abnormal balance or gait. ASSESSMENT AND PLAN: _Acute gastrointestinal bleed: Upper endoscopy was performed and showed 2 large ulcers biopsy was taking none of them is an active bleed at the time patient had an Endo Clip and one of them will watch for any further bleeding if had severe pain abnormality. Patient had embolization of further intervention for it in the meanwhile will stay on proton pump inhibitor twice a day for 1 month and then once a day thereafter. _Acute blood loss anemia: Transfusion for 1 unit of RBC corrected hemoglobin to above 7 g, hemoglobin is up to 8.5. _History of pancreatic cancer: Had radiation therapy and seen oncology and was the plan to go for intervention with possible [facility] at [facility] procedure currently can delay. _History of polycythemia vera: Has been seen by an oncologist at [facility] on more regular basis was doing hydroxyurea previously. He is not on medication currently. _Recent history of kidney stone with mild hydronephrosis found via CAT scan patient was treated remain on Flomax. _Abdominal aortic aneurysm with size of 3.8 cm small and to be watch not in any active treatment. _Hypertension: Has been on lisinopril hydrochlorothiazide 10/12.5 mg a day hold medication if systolic blood pressure below 110. _Hyperlipidemia: Has been on simvastatin 20 mg a day. _A-fib with well-controlled pulse rate running in the 70s to 90s was on atenolol previously he is not on any anticoagulation. _BPH: Continue Flomax watch for any urinary retention. _GI prophylaxis: Continue pantoprazole IV. Discussion: Patient still seeing black stool but no active bleed no drop in hemoglobin we will watch him for 24 more hours if he is doing well with no significant requirement for transfusion will be able to go home. Patient also seen cardiology for the A-fib without any rapid ventricular response no anticoagulation will be, Done at this point if needed will benefit from smaller dose of beta-ricky. Arrangement as an outpatient follow-up remain remained as well. Objective - Vital Signs Vital signs: Vital Signs Temp 97.7 F 11/10/23 04:00 Pulse 73 11/10/23 04:00 Resp 16 11/10/23 04:00 BP 110/70 11/10/23 04:00 Pulse Ox 98 11/10/23 04:00 FiO2 Intake & Output 11/09/23 11/09/23 11/10/23 06:59 18:59 06:59 Intake Total 800 560 Output Total 250 Balance 550 560 Weight 61.5 kg 63.2 kg Intake: IV 200 Intake, IV Titration 800 Amount Sodium Chloride 0.9% 1, 800 000 ml @ 100 mls/hr IV . Q10H [facility] Rx#:[id number] Oral 50 Blood Product 310 Rc As-1 Unit 310 [id number] Output: Urine 250 Other: Voiding Method Toilet Toilet Toilet # Voids 1 1 1 # Bowel Movements 1 - Labs CBC & Chem 7: 11/10/23 08:46 11/10/23 08:46 Labs: Abnormal Lab Results - Last 24 Hours (Table) 11/08/23 11/09/23 11/09/23 Range/Units 16:00 10:16 10:16 RBC 2.21 L (4.30-5.90) m/uL Hgb 6.8 L* (13.0-17.5) gm/dL Hct 21.5 L (39.0-53.0) % Plt Count 96 L (150-450) k/uL Lymphocytes # 0.4 L (1.0-4.8) k/uL Sodium 136 L (137-145) mmol/L Chloride 108 H (98-107) mmol/L Creatinine 0.38 L (0.66-1.25) mg/dL Calcium 8.0 L (8.4-10.2) mg/dL Iron 39 L (65-175) UG/DL Transferrin 168.0 L (204.0-354.0) mg/dL Alkaline Phosphatase 136 H (38-126) U/L Total Protein 4.9 L (6.3-8.2) g/dL Albumin 2.6 L (3.5-5.0) g/dL Crossmatch See Detail 11/09/23 Range/Units 20:05 RBC 2.40 L (4.30-5.90) m/uL Hgb 7.6 L (13.0-17.5) gm/dL Hct 23.7 L (39.0-53.0) % Plt Count 104 L (150-450) k/uL Lymphocytes # (1.0-4.8) k/uL Sodium (137-145) mmol/L Chloride (98-107) mmol/L Creatinine (0.66-1.25) mg/dL Calcium (8.4-10.2) mg/dL Iron (65-175) UG/DL Transferrin (204.0-354.0) mg/dL Alkaline Phosphatase (38-126) U/L Total Protein (6.3-8.2) g/dL Albumin (3.5-5.0) g/dL Crossmatch
[2023-11-11 06:39] LABS: HCT 24.1 % (39.0-53.0); HGB 7.8 gm/dL (13.0-17.5); MCH 32.3 pg (25.0-35.0); MCHC 32.4 g/dL (31.0-37.0); MCV 99.6 fL (80.0-100.0); Macrocytosis Slight; Mean Platelet Volume 9.6; RBC 2.42 m/uL (4.30-5.90); RDW 15.5 % (11.5-15.5); WBC 4.7 k/uL (3.8-10.6)
[2023-11-11 06:46] LABS: Platelet Count 99 k/uL (150-450)
[2023-11-11 07:37] LABS: African American GFR (CKD) >90 (>60 ml/min/1.73 sqM); Anion Gap 4 mmol/L; Blood Urea Nitrogen 8 mg/dL (9-20); Calcium 7.9 mg/dL (8.4-10.2); Carbon Dioxide 23 mmol/L (22-30); Chloride 110 mmol/L (98-107); Glucose 88 mg/dL (74-99); Non-African American GFR(CKD) >90 (>60 ml/min/1.73 sqM); Potassium 3.4 mmol/L (3.5-5.1); Sodium 137 mmol/L (137-145)
--- NOTE | 2023-11-11 07:46 | XR ---
EXAMINATION TYPE: XR KUB DATE OF EXAM: 11/11/2023 COMPARISON: None INDICATION: Kidney stones TECHNIQUE: Single view abdomen upright view FINDINGS: There is a normal bowel gas pattern. Psoas margins are normal. No organomegaly is present. Suspicious calcifications identified. There is a right hip pin IMPRESSION: 1. Unremarkable Abdomen
--- NOTE | 2023-11-11 07:57 | US ---
EXAMINATION TYPE: US renals and bladder DATE OF EXAM: 11/11/2023 COMPARISON: NONE CLINICAL INDICATION: Male, 68 years old with history of Kidney stone; Panc Ca. Patient states having been told he had renal stones. EXAM MEASUREMENTS: Right Kidney: 11.4 x 6.0 x 5.7 cm Left Kidney: 11.7 x 5.8 x 4.5 cm Right Kidney: No hydronephrosis or masses seen Left Kidney: Lateral superior anechoic lesion with septation - 4.0 x 3.5 x 3.4 cm Bladder: Distended, anechoic. Wall thickening = 5.5 mm. Prostate = 4.7 x 5.0 x 4.1 cm Bilateral Jets not seen Incidental finding: trace fluid seen adjacent to liver Incidental finding: Distal AAA = 3.4 x 3.4 cm. Urinary bladder wall is diffusely thickened. IMPRESSION: 1. Septated cyst upper pole left kidney. Follow-up recommended. 2. Fusiform prominence distal abdominal aorta measuring AP 3.4 cm. 3. Prostate is prominent. Urinary bladder wall thickening is present.
[2023-11-11 09:13] VITALS: RESP 20
--- NOTE | 2023-11-11 11:14 | P.PN ---
Subjective Progress Note Date: 11/11/23 Principal diagnosis: Melena, weakness This is a pleasant 68-year-old male with a past medical history including polycythemia vera, hyperlipidemia, hypertension, possible atrial fibrillation not on anticoagulation, kidney stone with hydronephrosis and pancreatic cancer with recent chemotherapy and radiation therapy. Last radiation treatment in July this year. Patient states he started noticing black stools Tuesday morning which have been loose he was having multiple prior to coming into the hospital but has only had 1 yesterday morning. States it was still black, no ab dominal pain but states that he does have some epigastric discomfort and has been having more recent complaints of heartburn/acid reflux. He denies any difficulty swallowing. He denies any NSAID use states he only uses Tylenol. Denies any previous history of GI bleed. He had a screening colonoscopy in September [address] Chisholm with findings of diverticulosis and multiple polyps status post polypectomy. He states that as part of his workup for his pancreatic cancer which she follows with [facility] in [place] he had a colonoscopy last year which she states was normal. No prior upper endoscopy. No history of peptic ulcer disease. Hemoglobin 7.0 yesterday platelets 95,000 with elevated BUN 26. 11/10/2023 Patient seen and examined as a follow-up. He is sitting up in his chair. He was up to the bathroom. Yesterday he underwent upper endoscopy with findings of large antral ulcer without any active bleeding with Endo Clip placement and linear ulceration to the proximal antrum of the stomach. Patient hemoglobin stable at 8.5. States he did have a bowel movement with a black stool this morning. He denies any abdominal pain, tolerating clear liquid diet. 11/11/2023 Patient seen as a follow-up. He is status post upper endoscopy. Hemoglobin sta ble at 7.8. He denies any abdominal pain, nausea or vomiting. Tolerating regular diet. Objective - Vital Signs Vital signs: Vital Signs Temp 97.5 F L 11/11/23 08:00 Pulse 78 11/11/23 08:00 Resp 20 11/11/23 08:00 BP 120/74 11/11/23 08:00 Pulse Ox 100 11/11/23 08:00 FiO2 Intake & Output 11/10/23 11/11/23 11/11/23 18:59 06:59 18:59 Intake Total 1260 240 Output Total 350 Balance 1260 -350 240 Weight 66 kg Intake: Intake, IV Titration 900 Amount Sodium Chloride 0.9% 1, 900 000 ml @ 75 mls/hr IV . [id number] [facility] Rx#:[id number] Oral 360 240 Output: Urine 350 Other: Voiding Method Toilet # Voids 1 1 # Bowel Movements 1 - Exam General appearance: The patient is alert, oriented, appears in no acute distress. HET: Head is normocephalic and atraumatic. Conjunctiva pink. Sclera anicteric. Neck: Supple without lymphadenopathy. Abdomen: Soft, nontender, nondistended with bowel sounds. No guarding or rigidity. Extremities: Normal skin color and turgor. No pedal edema Skin: No rashes, no jaundice Neurological: No focal deficits. Alert and oriented. - Labs CBC & Chem 7: 11/11/23 06:24 11/11/23 06:24 Labs: Abnormal Lab Results - Last 24 Hours (Table) 11/11/23 11/11/23 Range/Units 06:24 06:24 RBC 2.42 L (4.30-5.90) m/uL Hgb 7.8 L (13.0-17.5) gm/dL Hct 24.1 L (39.0-53.0) % Plt Count 99 L (150-450) k/uL Potassium 3.4 L (3.5-5.1) mmol/L Chloride 110 H (98-107) mmol/L BUN 8 L (9-20) mg/dL Creatinine 0.43 L (0.66-1.25) mg/dL Calcium 7.9 L (8.4-10.2) mg/dL Assessment and Plan (1) Anemia Narrative/Plan: 68-year-old male presenting with weakness and black stools since Tuesday. No previous history of GI bleed however does have pancreatic cancer his completed chemotherapy and recently completed radiation therapy last treatment and July of this year. Reported history of atrial fibrillation not on any anticoagulation presented with anemia. Unclear etiology patient has been complaining of epigastric discomfort and GERD. No NSAID use. Possible etiologies include peptic ulcer disease, AVM, gastritis, esophagitis or other possible etiologies. Recommend proceeding with upper endoscopy as patient has had a drop in hemoglobin to 6.8 today, elevated BUN which can be seen with upper GI bleed. Current Visit: Yes Status: Acute Code(s): D64.9 - ANEMIA, UNSPECIFIED SNOMED Code(s): 982710992 (2) Antral ulcer Narrative/Plan: Patient underwent upper endoscopy with findings of large antral ulcer without any active bleeding with Endo Clip placement. Additional linear ulceration noted on the proximal antrum of the stomach. Continue with Protonix 40 mg twice daily. Current Visit: Yes Status: Acute Code(s): K25.9 - GASTRIC ULCER, UNSP ACUTE OR CHRONIC, W/O HEMOR OR PERF SNOMED Code(s): 3205945000582 (3) Melena Current Visit: Yes Status: Acute Code(s): K92.1 - MELENA SNOMED Code(s): 3214710 (4) Pancreatic cancer Current Visit: Yes Status: Acute Code(s): C25.9 - MALIGNANT NEOPLASM OF PANCREAS, UNSPECIFIED SNOMED Code(s): 171530145 (5) Polycythemia vera Current Visit: Yes Status: Acute Code(s): D45 - POLYCYTHEMIA VERA SNOMED Code(s): 327534295 (6) Nicotine addiction Current Visit: No Status: Acute Code(s): F17.200 - NICOTINE DEPENDENCE, UNSPECIFIED, UNCOMPLICATED SNOMED Code(s): 44957434 Plan: 1. Continue symptomatic and supportive care 2. Continue diet as tolerated 3. Continue Protonix 40 mg twice daily 4. Recommend smoking cessation 5. No further workup from gastroenterology 6. Patient is cleared from gastroenterology for discharge. Patient will need follow-up with gastroenterology and 1 to 2 weeks for biopsy results Thank you for this consultation, we will sign off at this time. Dr. Sarabjit Al I agree with the dictator's note, documented as a scribe by Melina Bradford.
[2023-11-11 11:22] VITALS: BP 114/75; PULSE 70; TEMP 97.8
--- NOTE | 2023-11-11 12:47 | CA ---
Transthoracic Echo Report Name: Christian Rodriguez Age: 68 Gender: M : 1955 Exam Date: 11/10/2023 11:27 Exam Location: [facility] Ht (in): 66 Wt (lb): 135 Ordering Physician: Colin Deras MD Attending/Referring Phys: Export Specialist Jesusita Faria RDCS Procedure CPT: Indications: lvfunction Cardiac Hx: Technical Quality: Fair Contrast 1: Total Dose (mL): Contrast 2: Total Dose (mL): MEASUREMENTS (Male / Female) Normal Values 2D ECHO LV Diastolic Diameter PLAX 4.1 cm 4.2 - 5.9 / 3.9 - 5.3 cm LV Systolic Diameter PLAX 2.5 cm IVS Diastolic Thickness 0.8 cm 0.6 - 1.0 / 0.6 - 0.9 cm LVPW Diastolic Thickness 0.8 cm 0.6 - 1.0 / 0.6 - 0.9 cm LV Relative Wall Thickness 0.4 LVOT Diameter 2.2 cm LA Volume 94.9 cm??? 18 - 58 / 22 - 52 cm??? LA Volume Index 56.1 cm???/m??? 16 - 28 cm???/m??? Ascending Aorta Diameter 3.1 cm DOPPLER AV Peak Velocity 109.9 cm/s AV Peak Gradient 4.8 mmHg AV Mean Velocity 74.8 cm/s AV Mean Gradient 2.5 mmHg AV Velocity Time Integral 22.3 cm LVOT Peak Velocity 89.6 cm/s LVOT Peak Gradient 3.2 mmHg LVOT Velocity Time Integral 19.9 cm LVOT Stroke Volume 73.9 cm??? LVOT Stroke Volume Index 43.7 ml/m??? LVOT Cardiac Index 2976.1 cm???/min???m??? AV Area Cont Eq vti 3.3 cm??? AV Area Cont Eq pk 3.0 cm??? PV Peak Velocity 56.8 cm/s PV Peak Gradient 1.3 mmHg FINDINGS Left Ventricle Left ventricular ejection fraction is estimated at 60-65 %. Left ventricular cavity size normal. Left ventricular wall thickness normal. No obvious regional wall motion abnormalities. Right Ventricle Normal right ventricular size and function. Unable to estimate the right ventricular systolic pressure. Right Atrium Right atrial dilatation. Left Atrium Severely increased left atrial volume. Mildly increased left atrial area. Mitral Valve Mitral valve thickened. No evidence for mitral valve prolapse. No mitral stenosis. Trace mitral regurgitation. Aortic Valve Trileaflet aortic valve. Aortic valve sclerosis. No aortic stenosis. No aortic regurgitation. Tricuspid Valve Structurally normal tricuspid valve. No tricuspid stenosis. Trace tricuspid regurgitation. Pulmonic Valve Structurally normal pulmonic valve. No pulmonic regurgitation. No pulmonic stenosis. Pericardium No pericardial effusion. Aorta Normal size aortic root and proximal ascending aorta. CONCLUSIONS Left ventricular ejection fraction 60-65% Mildly dilated left atrium Trace mitral regurgitation Trace tricuspid regurgitation No pericardial effusion Previewed by: Dr. Chalo Teixeira DO (Electronically Signed) Final Date: 11 November 2023 12:47
--- NOTE | 2023-11-11 13:27 | P.PN ---
Subjective HISTORY OF PRESENT ILLNESS: This is a 68-year-old male with a past medical history significant for pancreatic cancer with chemotherapy and radiation and kidney stones. 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 We have been asked to see the patient in consultation for atrial fibrillation. Patient examined at the bedside. Patient spouse is at the bedside. Patient presented to the hospital with a chief complaint of black stools x 3 to 4 days. Patient was found to be anemic. Most recent hemoglobin 6.8. Patient is scheduled to undergo endoscopy this afternoon. Patient was also found to be in atrial fibrillation with controlled ventricular rate. The patient denies any previous history of atrial fibrillation. However this is documented on the history and physical by Dr. Deras. However, patient and spouse deny history of atrial fibrillation. There are no previous EKGs available in the EMR for review. The patient was not anticoagulated on an outpatient basis. DIAGNOSTICS: - EKG reveals atrial fibrillation with controlled ventricular rate - Laboratory data: WBC 4.7. Hemoglobin 6.8. Platelet count 96. Sodium 136. Potassium 3.7. BUN 18. Creatinine 0.38. Troponin negative x 1. - Current home cardiac medications include none 11/10/2023 Patient is status post EGD revealing 4 cm large antral ulcer and 3 cm linear ulceration in the proximal antrum of the stomach. Patient examined this morning at the bedside. Patient's family is present. Patient currently denies chest pain or pressure. He denies shortness of breath. Telemetry reveals atrial fibrillation with controlled ventricular rate. Vital signs are stable. 11/11/2023 Patient examined this morning at the bedside. Patient's family is present. Patient currently denies chest pain or pressure. He denies shortness of breath. Vital signs are stable. He remains in atrial fibrillation with controlled ventricular rate. Echocardiogram completed revealing ejection fraction 60 to 65% with trace MR. PHYSICAL EXAM: VITAL SIGNS: Reviewed. GENERAL: Well-developed in no acute distress. HEENT: Head is normocephalic. Pupils are equal, round. Sclerae anicteric. Mucous membranes of the mouth are moist. Neck supple. No JVD or thyromegaly LUNGS: Respirations even and unlabored. Lungs essentially clear to auscultation bilaterally. HEART: Irregular rate and rhythm. S1 and S2 heard. ABDOMEN: Soft. Nondistended. Nontender. EXTREMITIES: Normal range of motion. No clubbing or cyanosis. Peripheral pulses intact. No lower extremity edema NEUROLOGIC: Awake and alert. Oriented x 3. ASSESSMENT: Melena Acute blood loss anemia Upper GI bleed Status post EGD revealing 4 cm large antral ulcer and 3 cm linear ulceration in the proximal antrum of the stomach. Atrial fibrillation with controlled ventricular rate. Unknown duration, appears to be new onset, patient denies history of atrial fibrillation History of pancreatic cancer with previous chemotherapy History of kidney stones PLAN: No anticoagulation due to acute anemia Stable for discharge from a cardiac standpoint Patient to follow-up postdischarge in the office Nurse practitioner note has been reviewed by physician. Signing provider agrees with the documented findings, assessment, and plan of care documented by RETREAD MOLD OPERATOR as a scribe. Objective - Vital Signs Vital signs: Vital Signs Temp 97.8 F 11/11/23 11:21 Pulse 70 11/11/23 11:21 Resp 20 11/11/23 11:21 BP 114/75 11/11/23 11:21 Pulse Ox 94 L 11/11/23 11:21 FiO2 Intake & Output 11/10/23 11/11/23 11/11/23 18:59 06:59 18:59 Intake Total 1260 240 Output Total 350 Balance 1260 -350 240 Weight 66 kg Intake: Intake, IV Titration 900 Amount Sodium Chloride 0.9% 1, 900 000 ml @ 75 mls/hr IV . [id number] [facility] Rx#:[id number] Oral 360 240 Output: Urine 350 Other: Voiding Method Toilet # Voids 1 1 # Bowel Movements 1 - Labs CBC & Chem 7: 11/11/23 06:24 11/11/23 06:24 Labs: Abnormal Lab Results - Last 24 Hours (Table) 11/11/23 11/11/23 Range/Units 06:24 06:24 RBC 2.42 L (4.30-5.90) m/uL Hgb 7.8 L (13.0-17.5) gm/dL Hct 24.1 L (39.0-53.0) % Plt Count 99 L (150-450) k/uL Potassium 3.4 L (3.5-5.1) mmol/L Chloride 110 H (98-107) mmol/L BUN 8 L (9-20) mg/dL Creatinine 0.43 L (0.66-1.25) mg/dL Calcium 7.9 L (8.4-10.2) mg/dL
--- NOTE | 2023-11-13 14:14 | P.DS ---
Providers Date of admission: 11/10/23 10:15 Attending physician: Colin Deras Consults: 11/08/23 16:00 Consult Physician Routine Consulting Provider: Natalia Al Consult Reason/Comments: gib Do you want consulting provider notified?: Yes 11/08/23 23:37 Consult Physician Routine Consulting Provider: Linda Medellin Consult Reason/Comments: Afib controlled with h/o of afib per Dr. 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 He was recently in the office for recurrent abdominal discomfort with mild hematuria and BPH symptoms CAT scan of the abdomen done recently showed kidney stone with mild hydronephrosis and sign of upper urinary infection was started on Cipro and Flomax and has done well. He called the office today with a concern of tarry stool, severe fatigue and tiredness, increased abdominal pain mostly in the epigastric area started Tuesday of this week become slightly bit worse since and has been having tarry black stool since with slightly frequent bowel movement. Was seen and evaluated in the office his hemoglobin from the time before was 12 g stat CBC was done in the office came back at 9.0. Patient was referred to the emergency department for gastrointestinal bleed he ended up with hemoglobin of 8.1 with a short period of time from the timing of the office to coming to the hospital. Patient was admitted for gastrointestinal bleed most likely upper GI his pulse was slightly bit irregular, has A-fib and has been having history of A-fib for a while did not require any anticoagulation was seen cardiology previously with his current history of gastrointestinal cancer and the higher evidence for anemia and complication he is not on any anticoagulation. 11/09/2023: Hemoglobin dropped down to 6.8 and required 1 unit of blood transfusion which corrected hemoglobin up to 7.6. After patient seen gastroenterology decided to pursue EGD which was done shortly in the afternoon shows 4 cm large antral ulcer with pigmented spot but no active bleed status post clip placement followed by biopsy also had 3 cm line or ulceration of the proximal antrum of the stomach recommended to continue pantoprazole 40 mg twice a day continue to repeat CBC every 6 hours to make sure there is no active bleed. Patient is resting comfortably at this point no sign of active bleed continue to have black stool. Also patient was started on clear liquid diet. Will continue CBC continue to watch for any further active bleed as my concern there is no reason to run or do colonoscopy finding with the EGD itself is more satisfactory for the source of bleeding and hopefully further management. In 11/10/2023: Hemoglobin still stable after transfusion and up to 8.5 today with no active bleed but patient still seeing black stool when he is in the bathroom. Review gastroenterology workup showed 2 large ulcer 1 is 3 and 1 is 4 cm none of them is having any bleeding at the time and apparently have an Endo Clip placement and liner ulceration to the proximal antrum of the stomach will cont inue to watch for 24 hours if no further bleeding or drop in hemoglobin patient be safe to be discharged home with that caution to watch for any further bleed if he does might require further intervention including embolization to stop the bleeding. Also patient seen cardiology for stable A-fib with pulse rate running between 60s and 90s cannot be on anticoagulation from the bleed and from his history of pancreatic cancer into the treatment going through for the time being. If the circumstances change will do further management otherwise for now we will continue rate control without anticoagulation. Echocardiogram again was order was done as not read to make an appointment for patient to see cardiology as an outpatient. I have long discussion with patient and his sisters on the current finding and the prognosis is really understand they understand probably discharge extremely high tomorrow unless we have repleted again. 11/11/2023: Patient is feeling much better hemoglobin remained at 7.8 with no significant drop in hemoglobin still having very tiny black tarry stool only but no symptom of abdominal pain or any change at this point consistent with worsening or recurrent GI bleed. He was cleared by gastroenterology for discharge at this point and to follow-up as an outpatient might benefit from doing another EGD possibly in 6 to 12 weeks. The meanwhile will be on proton pump inhibitor twice a day CBC will be done every 1 to 2 weeks for the next 3 months. REVIEW OF SYSTEMS: CONSTITUTIONAL: Well-developed no acute respiratory distress. Quite bit pale. EYES: No icterus sclerae, no conjunctivitis. EARS, NOSE, MOUTH, THROAT, and FACE: No sore throat, lymphadenopathy, carotid bruits or deformity. RESPIRATORY: No SOB cough or wheezes. CARDIOVASCULAR: No CP, positive palpitation and PND, Orthopnea, without angina. GASTROINTESTINAL: Positive abdominal pain with nausea positive diarrhea with black stool and recurrent GI bleed without any bright blood per rectum. History of pancreatic cancer. GENITOURINARY: Negative for Hematuria or UTI, no kidney stones. Mild BPH symptoms. INTEGUMENT/BREAST: Negative for any muscular injury with mild osteoarthritis.. HEMATOLOGIC/LYMPHATIC: Negative for bleed or purpura. MUSCULOSKELTAL: Negative for Myalgia or arthralgia. NEURLOGICAL: No LOC, Sz or syncope, blurred vision dizziness or abnormality.. BEHAVIORAL/PSYCH: Negative. ENDOCRINE: Negative. PHYSICAL EXAMINATION: General Appearance: Alert, cooperative, no distress, appears stated age. Neck HEENT: Supple, no lymphadenopathy, no thyroid enlargement, no carotid bruits. Lungs: Clear to auscultation without crackles or wheezes no rhonchi, no deformity. Chest Wall: Chest wall normal expansion with deep inspiration no tenderness and no deformity was found on exam, no costochondral pain or discomfort. Heart: Irregular rate and rhythm, S1, S2 normal, positive systolic murmur at the apex. Back: Symmetric, no curvature, ROM normal, no CVA tenderness. Mild scoliosis and discomfort. Abdomen: Soft, bowel sounds active all four quadrants, slight discomfort in the epigastric area and mid abdominal area without rebound or rigidity. Extremities: Extremities normal, atraumatic, no cyanosis or edema. Old scar tissue on the left calvarium. Pulses: 2+ and symmetric. Skin: Skin color, texture, tugor normal, no rashes or lesions. Neurologic: Alert oriented x3 cranial nerves II through XII intact, no motor deficit, no abnormal balance or gait. ASSESSMENT AND PLAN: _Acute gastrointestinal bleed: Upper endoscopy was performed and showed 2 large ulcers biopsy was taking none of them is an active bleed at the time patient had an Endo Clip and one of them will watch for any further bleeding if had severe pain abnormality. Patient had embolization of further intervention for it in the meanwhile will stay on proton pump inhibitor twice a day for 1 month and then once a day thereafter. _Acute blood loss anemia: Transfusion for 1 unit of RBC corrected hemoglobin to above 7 g, hemoglobin is up to 8.5. _History of pancreatic cancer: Had radiation therapy and seen oncology and was the plan to go for intervention with possible [facility] at [facility] procedure currently can delay. _History of polycythemia vera: Has been seen by an oncologist at [facility] on more regular basis was doing hydroxyurea previously. He is not on medication currently. _Recent history of kidney stone with mild hydronephrosis found via CAT scan patient was treated remain on Flomax. _Abdominal aortic aneurysm with size of 3.8 cm small and to be watch not in any active treatment. _Hypertension: Has been on lisinopril hydrochlorothiazide 10/12.5 mg a day hold medication if systolic blood pressure below 110. _Hyperlipidemia: Has been on simvastatin 20 mg a day. _A-fib with well-controlled pulse rate running in the 70s to 90s was on atenolol previously he is not on any anticoagulation. _BPH: Continue Flomax watch for any urinary retention. _GI prophylaxis: Continue pantoprazole IV. Hospital course: Patient was admitted to the hospital on 11/08/2023 he presented to the office with complaining of tarry stools with weakness tiredness fatigue and lightheadedness found to have anemia with hemoglobin at 9.0 dropped from 12 g early. Was sent to the emergency department and hospitalized hemoglobin dropped down shortly after being in the ER down to 8.1 and furthermore down to 7 and then 6.8 patient required transfusion. Patient seen gastroenterology and decided to go for an EGD which was done on 11/09/2023 consistent with 2 large ulcers and one of them is 3 cm and one 4 cm no active bleed but she was taking at the time and one of them had Endo Clip. Patient did not have any further bleeding did not require any further transfusion hemoglobin is stable for the reminder of hospitalization. He developed and found to have A-fib without rapid ventricular response he had history of A-fib patient cannot be on any anticoagulation agreeable at this point to start him on smaller dose of carvedilol 3.125 mg twice a day and no anticoagulation is needed at this point specially with his acute GI bleed and he treatment for pancreatic cancer. Patient was stable to be discharged on 11/11/2023 was seen and evaluated by cardiology again and by gastroenterology and felt no further active bleed required he can be followed as an outpatient. Time spent on discharging patient was over 33 minutes. Patient Condition at Discharge: Serious Plan - Discharge Summary Discharge Rx Participant: No New Discharge Prescriptions: New Nicotine 14Mg/24Hr Patch [Habitrol] 1 patch TRANSDERM DAILY #0 patch carvediloL [Coreg] 3.125 mg PO AC-BID #60 tablet HYDROcodone/APAP 5-325MG [Henderson 5-325] 1 each PO Q6HR PRN tab PRN Reason: Pain Pantoprazole [Protonix] 40 mg PO BID #60 tab Continue Diphenox-Atrop 2.5-0.025 mg [Lomotil] 1 - 2 tab PO Q6HR PRN PRN Reason: Diarrhea Tamsulosin [Flomax] 0.4 mg PO PC-SUPPER Ondansetron Odt [Zofran ODT] 8 mg PO Q8H PRN PRN Reason: Nausea ALPRAZolam [Xanax] 0.5 mg PO TID PRN PRN Reason: Anxiety Discharge Medication List ALPRAZolam [Xanax] 0.5 mg PO TID PRN 11/08/23 [History] Diphenox-Atrop 2.5-0.025 mg [Lomotil] 1 - 2 tab PO Q6HR PRN 11/08/23 [History] Ondansetron Odt [Zofran ODT] 8 mg PO Q8H PRN 11/08/23 [History] Tamsulosin [Flomax] 0.4 mg PO PC-SUPPER 11/08/23 [History] HYDROcodone/APAP 5-325MG [Henderson 5-325] 1 each PO Q6HR PRN tab 11/11/23 [Rx] Nicotine 14Mg/24Hr Patch [Habitrol] 1 patch TRANSDERM DAILY #0 patch 11/11/23 [Rx] Pantoprazole [Protonix] 40 mg PO BID #60 tab 11/11/23 [Rx] carvediloL [Coreg] 3.125 mg PO AC-BID #60 tablet 11/11/23 [Rx] Follow up Appointment(s)/Referral(s): Linda Medellin MD [STAFF PHYSICIAN] - 1 Week (office will call with appointment date and time) Colin Deras MD [Primary Care Provider] - 1-2 days Natalia Al MD [STAFF PHYSICIAN] - 12/20/23 3:15 pm Discharge Disposition: HOME SELF-CARE
== END 2023-11-11 14:10 | disposition home or self-care (01) | DRG 378 ==
LOC: EC 14:25 → 3SCARD 16:04 → OBSVTOIN 11-10 10:15
PROVIDERS: ADMIT Internal Medicine Geriatric Medicine; ATTEND Internal Medicine Geriatric Medicine
PROC: 30243N1 Transfusion of Nonautologous Red Blood Cells into Central Vein, Percutaneous Approach (ICD-10-PCS; 2023-11-09)
PROC: 0W3P8ZZ Control Bleeding in Gastrointestinal Tract, Via Natural or Artificial Opening Endoscopic (ICD-10-PCS; principal; 2023-11-09 07:45)
PROC: 0DB78ZX Excision of Stomach, Pylorus, Via Natural or Artificial Opening Endoscopic, Diagnostic (ICD-10-PCS; principal; 2023-11-09 07:45)
DX: K25.4 Chronic or unspecified gastric ulcer with hemorrhage (principal); C25.9 Malignant neoplasm of pancreas, unspecified; D62 Acute posthemorrhagic anemia; D45 Polycythemia vera; I48.91 Unspecified atrial fibrillation; I71.40 Abdominal aortic aneurysm, without rupture, unspecified; I10 Essential (primary) hypertension; K21.9 Gastro-esophageal reflux disease without esophagitis; E78.5 Hyperlipidemia, unspecified; N40.0 Benign prostatic hyperplasia without lower urinary tract symptoms; R31.9 Hematuria, unspecified; K57.30 Diverticulosis of large intestine without perforation or abscess without bleeding; M19.90 Unspecified osteoarthritis, unspecified site; F17.210 Nicotine dependence, cigarettes, uncomplicated; Z79.82 Long term (current) use of aspirin; Z79.899 Other long term (current) drug therapy; Z71.6 Tobacco abuse counseling; Z91.040 Latex allergy status; Z92.21 Personal history of antineoplastic chemotherapy; Z92.3 Personal history of irradiation
CPT/HCPCS: 36415; 43239; 74018; 76770; 80048; 80053; 82140; 82607; 82728; 82746; 83540; 83550; 83605; 83690; 83735; 84100; 84443; 84484; 85025; 85027; 85610; 85730; 86850; 86900; 86901; 86920; 88305; 88342; 93306; 96361; 96374; 96375; 99285

== ENCOUNTER → 2024-04-30 | Day surgery (SDC) | payer MEDICARE ==
[~2024-04-30] MED LIST: LIDOCAINE 1% (10MG/ML) FOR IV START INTRADERMA PRN; LIDOCAINE 2% (PF) 20 MG/ML 5 ML VIAL ONE; PROPOFOL 10 MG/ML 20 ML VIAL IV ONE
[2024-04-30] MEDS: IV FLUID CONTINUATION 1,000 ML IV ONE ×2 (09:03→09:42)
[2024-04-30 09:10] VITALS: TEMP 98.4
[2024-04-30] MEDS: LACTATED RINGERS 1,000 ML IV SCH (09:15)
--- NOTE | 2024-04-30 09:54 | P.PCN ---
Date of Procedure: 04/30/24 Procedure(s) Performed: BRIEF HISTORY: Patient is a 69-year-old, pleasant, white male scheduled upper endoscopy as a part of follow-up of large gastric ulcer diagnosed in October 2023. He presented with UGI bleed and underwent an upper endoscopy which revealed a 4 cm large antral ulcer and a 3 cm proximal gastric ulcer. Patient has history of pancreatic cancer and is undergoing chemotherapy. PROCEDURE PERFORMED: Esophagogastroduodenoscopy with biopsy.. PREOPERATIVE DIAGNOSIS: Follow-up large gastric antral ulcer diagnosed in October 2021. IV sedation per anesthesia. PROCEDURE: After informed consent was obtained, the patient was brought into the endoscopy unit. IV sedation was administered by Anesthesia under continuous monitoring. Initially the Olympus GIF-140 video endoscope was inserted into the mouth. Esophagus intubated without any difficulty. It was gradually advanced into the stomach and duodenum and carefully examined. The bulb and the second part of the duodenum appeared normal. The scope at this time was withdrawn to the stomach, adequately insufflated with air, and upon careful examination, mucosa of the antrum gastritis and biopsies were done from this area. The previously noted antral ulcer has completely healed. Mucosa of the, body, cardia and the fundus appeared normal. The scope was then withdrawn into the esophagus. No hiatal hernia noted. The GE junction was located at 39 cm from the incisors. The esophagus appeared normal. There were no erosions or ulceratio ns seen and the patient tolerated the procedure well. IMPRESSION: 1. Completely healed antral and proximal gastric ulcers. 2. Mild antral gastritis 3. Small hiatal hernia. RECOMMENDATIONS: The findings of this examination were discussed with the patient and his family. He was advised to continue with Protonix 40 mg daily and continue to follow antireflux measures..
[2024-04-30 10:21] VITALS: RESP 16
[2024-04-30 10:38] VITALS: BP 168/92; PULSE 74
== END ==
LOC: ORWHC2ENDO 08:38
PROVIDERS: ATTEND Internal Medicine Gastroenterology
DX: Z09 Encounter for follow-up examination after completed treatment for conditions other than malignant neoplasm (principal); Z87.11 Personal history of peptic ulcer disease; K29.50 Unspecified chronic gastritis without bleeding; K21.9 Gastro-esophageal reflux disease without esophagitis; K44.9 Diaphragmatic hernia without obstruction or gangrene; C25.9 Malignant neoplasm of pancreas, unspecified; I10 Essential (primary) hypertension; E78.5 Hyperlipidemia, unspecified; G47.33 Obstructive sleep apnea (adult) (pediatric); F32.A Depression, unspecified; F17.200 Nicotine dependence, unspecified, uncomplicated; Z79.60 Long term (current) use of unspecified immunomodulators and immunosuppressants; Z79.899 Other long term (current) drug therapy; Z91.040 Latex allergy status
CPT/HCPCS: 88305; 43239; J2704; J2003

== ENCOUNTER 2024-10-08 11:08 | Emergency (ER) | payer MEDICARE ==
[2024-10-08 11:14] VITALS: RESP 20; TEMP 97
[2024-10-08] MEDS ORDERED: MORPHINE SULFATE 4 MG/ML SYRINGE IVP PRN (12:13)
--- NOTE | 2024-10-08 12:16 | ED ---
General Adult HPI - General Chief complaint: Weakness Stated complaint: Weakness Time Seen by Provider: 10/08/24 11:11 Source: patient, family, EMS Mode of arrival: EMS Limitations: no limitations - History of Present Illness Initial comments: Dictation was produced using [employer] dictation software. please excuse any grammatical, word or spelling errors. Chief Complaint: 69-year-old male with pancreatic cancer presents to the emergency department for weakness and clamminess History of Present Illness: Patient 69-year-old male he has history of panc reatic cancer. Patient allegedly moving towards palliative care and hospice. No longer is excepting treatment for cancer treatment due to lack of improvement. Since yesterday has been having temperature swings clinic feeling hot and feeling cold. Patient complaining of back pain. Back pain is largely chronic secondary to pancreatic cancer. 2 sisters at the bedside states that patient is no code. The ROS documented in this emergency department record has been reviewed and confirmed by me. Those systems with pertinent positive or negative responses have been documented in the HPI. All other systems are other negative and/or noncontributory. - Related Data Home Medications Medication Instructions Recorded Confirmed ALPRAZolam [Xanax] 0.5 mg PO TID PRN 11/08/23 04/30/24 Diphenox-Atrop 2.5-0.025 mg 1 - 2 tab PO BID 11/08/23 04/30/24 [Lomotil] Ondansetron Odt [Zofran ODT] 4 - 8 mg PO Q8H PRN 11/08/23 04/30/24 Tamsulosin [Flomax] 0.4 mg PO PC-SUPPER 11/08/23 04/30/24 Unk Slow Fe 45mg 45 mg PO DAILY 04/26/24 04/30/24 Furosemide [Lasix] 20 mg PO DAILY PRN 04/26/24 04/30/24 Mirtazapine 15 mg PO DIRECTED PRN 04/26/24 04/30/24 Pantoprazole [Protonix] 40 mg PO DAILY 04/26/24 04/30/24 Potassium Chloride [Klor-Con 20 20 meq PO DIRECTED PRN 04/26/24 04/30/24 Packets] Prochlorperazine [Compazine] 10 mg PO DIRECTED PRN 04/26/24 04/30/24 Unk Josy Chandler 1 dose PO DIRECTED PRN 04/26/24 04/30/24 Unk Claritan 10 mg PO DIRECTED PRN 04/26/24 04/30/24 Previous Rx's Medication Instructions Recorded carvediloL [Coreg] 3.125 mg PO AC-BID #60 tablet 11/11/23 Morphine Sulfate ER [Ms Contin] 15 mg PO DAILY 6 Days #6 tab 10/08/24 Allergies Allergy/AdvReac Type Severity Reaction Status Date / Time Latex, Natural Rubber Allergy Rash/Hives Verified 10/08/24 11:14 Review of Systems ROS Statement: Those systems with pertinent positive or pertinent negative responses have been documented in the HPI. ROS Other: All systems not noted in ROS Statement are negative. Past Medical History Past Medical History: Cancer, GERD/Reflux, Hyperlipidemia, Hypertension, Osteoarthritis (OA), Sleep Apnea/CPAP/BIPAP Additional Past Medical History / Comment(s): Farming accident to left medial calf/[place]. hx ulcer. current pancreatic cancer- last chemo04/19/24. does not use cpap. loose stools. History of Any Multi-Drug Resistant Organisms: None Reported Past Surgical History: Orthopedic Surgery Additional Past Surgical History / Comment(s): multiple surgeries to left calf related to farming accident. egd- stapled ulcer, colonoscopy, 2 stents placed (non cardiac) Past Anesthesia/Blood Transfusion Reactions: No Reported Reaction Past Psychological History: Depression Smoking Status: Current every day smoker Past Alcohol Use History: None Reported Past Drug Use History: Marijuana - Past Family History Father Family Medical History: No Reported History General Exam - General Exam Comments Initial Comments: PHYSICAL EXAM: General Impression: Alert and oriented x3, cachectic HEENT: Normocephalic atraumatic, extra-ocular movements intact, pupils equal and reactive to light bilaterally, mucous membranes moist. Cardiovascular: Heart regular rate and rhythm Chest: Able to complete full sentences, no retractions, no tachypnea Abdomen: abdomen soft, non-tender, non-distended, no organomegaly Musculoskeletal: Pulses present and equal in all extremities, no peripheral edema Motor: no focal deficits noted Neurological: CN II-XII grossly intact, no focal motor or sensory deficits noted Skin: Intact with no visualized rashes Psych: Normal affect and mood Limitations: no limitations Course Vital Signs 10/08/24 10/08/24 11:09 12:51 Temperature 97 F L Pulse Rate 106 H 100 Respiratory 20 20 Rate Blood Pressure 90/69 92/67 O2 Sat by Pulse 96 100 Oximetry Medical Decision Making - Medical Decision Making Was pt. sent in by a medical professional or institution (, PA, REPORTER, urgent care, hospital, or usp...) When possible be specific @ -No Did you speak to anyone other than the patient for history (EMS, parent, family, police, friend...)? What history was obtained from this source @ -No Did you review nursing and triage notes (agree or disagree)? Why? @ -I reviewed and agree with nursing and triage notes Were old charts reviewed (outside hosp., previous admission, EMS record, old EKG, old radiological studies, urgent care reports/EKG's, usp records)? Report findings @ -No old charts were reviewed Differential Diagnosis (chest pain, altered mental status, abdominal pain women, abdominal pain men, vaginal bleeding, musculoskeletal, weakness, fever, dyspnea, syncope, headache, dizziness, GI bleed, back pain, seizure, CVA, palpatations, mental health)? @ -Differential Abdominal Pain Men: Appendicitis, cholecystitis, diverticulosis, ischemic bowel, pancreatitis, hepatitis, UTI, gastroenteritis, AAA, incarcerated hernia, bowel obstruction, constipation, inflammatory bowel, hepatitis, peptic ulcer disease, splenic infarction, perforated viscus, testicular torsion, this is not meant to be an all-inclusive list EKG interpreted by me (3pts min.). @ -My EKG interpretation: Ventricular rate 99, A-fib, QRS 103, QTc 443. No MT prolongation, no QTC prolongation, no ST or T-wave changes noted. Overall, this EKG is unremarkable X-rays interpreted by me (1pt min.). @ -None done CT interpreted by me (1pt min.). @ -None done U/S interpreted by me (1pt. min.). @ -None done What testing was considered but not performed or refused? (CT, X-rays, U/S, labs)? Why? @ -None What meds were considered but not given or refused? Why? @ -None Was smoking cessation discussed for >3mins.? @ -No Were there social determinants of health that impacted care today? How? (Homelessness, low income, unemployed, alcoholism, drug addiction, transportation, low edu. Level, literacy, decrease access to med. care, [facility], rehab)? @ -No Was there de-escalation of care discussed even if they declined (Discuss DNR or withdrawal of care, Hospice)? DNR status @ -No What co-morbidities impacted this encounter? (DM, HTN, Smoking, COPD, CAD, Cancer, CVA, ARF, Chemo, Hep., AIDS, mental health diagnosis, sleep apnea, morbid obesity)? @ -Progress pancreatic cancer Was patient admitted / discharged? Hospital course, mention meds given and route, prescriptions, significant lab abnormalities, going to OR and other pertinent info. @ -Patient 69-year-old male with history of worsening pancreatic cancer. Vital signs upon arrival are within acceptable limits. Patient presents to the ER for pain. According to sister is at the bedside providing history of present illness he has been having reported temperature swings. However does not have any focal symptoms. Vital signs upon arrival are within acceptable limits. Given patient's significantly progressed pancreatic cancer patient's case was discussed with case investigator and hospice will get involved with the patient. Labs shows significant abnormalities however nothing severely acute. Patient like to go home. Hospice will help manage patient. Patient given prescription for morphine extended release. Did you discuss the management of the patient with other professionals (professionals i.e. , PA, REPORTER, lab, RT, psych nurse, social services assistant, dry wall nailer, teacher, community cultural development officer, case investigator)? Give summary @ -No Was critical care preformed (if so, how long)? @ -No Undiagnosed new problem with uncertain prognosis? @ -No Drug Therapy requiring intensive monitoring for toxicity (Heparin, Nitro, Insulin, Cardizem)? @ -No Were any procedures done? @ -No Diagnosis/symptom? Acute, or Chronic, or Acute on Chronic? Uncomplicated (without systemic symptoms) or Complicated (systemic symptoms)? @ -Generalized weakness, worsening pancreatic cancer Side effects of treatment? @ -No Exacerbation, Progression, or Severe Exacerbation? @ -No Poses a threat to life or bodily function? How? (Chest pain, [place], DE, pneumonia, PE, COPD, DKA, ARF, appy, cholecystitis, CVA, Diverticulitis, Homicidal, Suicidal, threat to staff... and all critical care pts) @ -yes - Lab Data Result diagrams: 10/08/24 12:37 10/08/24 12:37 Lab Results 10/08/24 10/08/24 Range/Units 12:37 12:37 WBC 15.42 H (4.50-10.00) 10*3/uL RBC 3.71 L (4.40-5.60) 10*6/uL Hgb 11.8 L (13.0-17.0) g/dL Hct 34.2 L (39.6-50.0) % MCV 92.2 (80.0-97.0) fL MCH 31.8 (27.0-32.0) pg MCHC 34.5 (32.0-37.0) g/dL Plt Count 45 L (140-440) 10*3/uL MPV 11.3 (9.5-12.2) fL Immature Gran % (Auto) 18.7 % Neutrophils % (Manual) 94 % Lymphocytes % (Manual) 3 % Monocytes % (Manual) 3 % Immature Gran # 2.89 H (0.00-0.04) 10*3/uL Neutrophils # (Manual) 14.49 H (1.3-7.7) k/uL Lymphocytes # (Manual) 0.46 L (1.0-4.8) k/uL Monocytes # (Manual) 0.46 (0-1.0) k/uL Nucleated RBCs 0 (0-0) /100 WBC Manual Slide Review Performed Immature Plt Fraction 8.3 H (1.1-6.1) % Sodium 135 L (137-145) mmol/L Potassium 3.9 (3.5-5.1) mmol/L Chloride 97 L (98-107) mmol/L Carbon Dioxide 26 (22-30) mmol/L Anion Gap 12 mmol/L BUN 44 H (9-20) mg/dL Creatinine 1.53 H (0.66-1.25) mg/dL Est GFR (CKD-EPI)AfAm 53 (>60 ml/min/1.73 sqM) Est GFR (CKD-EPI)NonAf 46 (>60 ml/min/1.73 sqM) Glucose 100 H (74-99) mg/dL Calcium 8.5 (8.4-10.2) mg/dL Total Bilirubin 4.5 H (0.2-1.3) mg/dL AST 243 H (17-59) U/L ALT 109 H (4-49) U/L Alkaline Phosphatase 425 H (38-126) U/L Total Protein 5.8 L (6.3-8.2) g/dL Albumin 3.0 L (3.5-5.0) g/dL Disposition Clinical Impression: Pancreatic cancer Disposition: HOME SELF-CARE Condition: Fair Prescriptions: Morphine Sulfate ER [Ms Contin] 15 mg PO DAILY 6 Days #6 tab Is patient prescribed a controlled substance at d/c from ED?: Yes If prescribed controlled substance>3 days was MAPS reviewed?: Prescribed <3 Days Referrals: Colin Deras MD [Primary Care Provider] - 1-2 days Time of Disposition: 14:43
[2024-10-08] MEDS: SODIUM CHLORIDE 0.9% 1,000 ML IV STA (12:51)
[2024-10-08 12:52] VITALS: BP 92/67; PULSE 100
[2024-10-08 12:57] LABS: HCT 34.2 % (39.6-50.0); HGB 11.8 g/dL (13.0-17.0); Immature Platelet Fraction 8.3 % (1.1-6.1); MCH 31.8 pg (27.0-32.0); MCHC 34.5 g/dL (32.0-37.0); MCV 92.2 fL (80.0-97.0); Mean Platelet Volume 11.3 fL (9.5-12.2); RBC 3.71 10*6/uL (4.40-5.60); RDW 15.7 % (11.5-14.5); WBC 15.42 10*3/uL (4.50-10.00)
[2024-10-08 13:05] LABS: African American GFR (CKD) 53 (>60 ml/min/1.73 sqM); Anion Gap 12 mmol/L; Blood Urea Nitrogen 44 mg/dL (9-20); Calcium 8.5 mg/dL (8.4-10.2); Carbon Dioxide 26 mmol/L (22-30); Chloride 97 mmol/L (98-107); Glucose 100 mg/dL (74-99); Non-African American GFR(CKD) 46 (>60 ml/min/1.73 sqM); Potassium 3.9 mmol/L (3.5-5.1); Sodium 135 mmol/L (137-145); Total Bilirubin 4.5 mg/dL (0.2-1.3); Total Protein 5.8 g/dL (6.3-8.2)
[2024-10-08 13:06] LABS: ALT 109 U/L (4-49); AST 243 U/L (17-59); Alkaline Phosphatase 425 U/L (38-126)
[2024-10-08] MEDS: NICOTINE 14MG/24HR PATCH TRANSDERM ONE (13:58)
[2024-10-08 14:09] LABS: Platelet Count 45 10*3/uL (140-440)
[2024-10-08 14:11] LABS: Lymphocytes # (M) 0.46 k/uL (1.0-4.8); Monocytes # (M) 0.46 k/uL (0-1.0); Neutrophils # (M) 14.49 k/uL (1.3-7.7); Neutrophils % (M) 94 %; Nucleated Red Blood Cells 0 /100 WBC (0-0); Total Cells Counted 100
== END 2024-10-08 15:38 | disposition home or self-care (01) ==
LOC: EC 11:08
DX: C25.9 Malignant neoplasm of pancreas, unspecified (principal); F17.200 Nicotine dependence, unspecified, uncomplicated; Z91.040 Latex allergy status
CPT/HCPCS: 36415; 80053; 85025; 99285; 96374; 96361; S4990; J1642